=== PATIENT | female | born 1985 | race Caucasian/White ===

== ENCOUNTER 2018-04-01 08:15 | Emergency (ER) | payer OTHER ==
[2018-04-01 08:33] VITALS: BP 114/83; PULSE 94; O2SAT 98
--- NOTE | 2018-04-01 08:44 | ERPHSYRPT ---
- History of Present Illness Time Seen by Provider: 04/01/18 08:35 Source: patient Exam Limitations: no limitations Patient Subjective Stated Complaint: Neck pain/stiffness Triage Nursing Assessment: Patient ambulated into ER and transferred self to bed. Patient complains of neck pain/ stiffness since yesterday when waking up. Patient denies any injury to neck. Patient states she had a concussion last month and isn't sure if this has something to do with her neck pain. Patient states pain is a 9/10. Patient states she feels better when her hand is resting in her hands. No visible areas noted to neck. Physician History: 32 y/o white female presents with one day h/o neck pain when she awoke from a sleep yesterday morning. pt denies trauma. over a month ago pt was dx with a concussion after a head injury but the neck pain began yesterday. Timing/Duration: yesterday Severity: moderate Modifying Factors: Improves With: movement (worsens. ), rest (placing head into hands relieves pain) Associated Symptoms: denies symptoms, No nausea, No vomiting, No abdominal pain , No shortness of breath, No chest pain, No headaches, No loss of appetite Allergies/Adverse Reactions: aspirin Allergy (Verified 04/01/18 08:40) erythromycin base Allergy (Verified 04/01/18 08:40) ibuprofen Allergy (Verified 04/01/18 08:40) naproxen Allergy (Verified 04/01/18 08:40) Penicillins Allergy (Verified 04/01/18 08:40) promethazine [From Phenergan] Allergy (Verified 04/01/18 08:40) Sulfa (Sulfonamide Antibiotics) Allergy (Verified 04/01/18 08:40) Hx Tetanus, Diphtheria Vaccination/Date Given: Yes Hx Influenza Vaccination/Date Given: No Hx Pneumococcal Vaccination/Date Given: No Immunizations Up to Date: Yes - Review of Systems Constitutional: No Symptoms, No Fever, No Chills Eyes: No Symptoms, No Eye Pain Ears, Nose, & Throat: No Symptoms, No Ear Pain Respiratory: No Symptoms, No Cough, No Dyspnea, No Dyspnea on Exertion (SENA), No Stridor, No Wheezing Cardiac: No Symptoms, No Chest Pain, No Palpitations, No Syncope Abdominal/Gastrointestinal: No Symptoms, No Abdominal Pain, No Nausea, No Vomiting Genitourinary Symptoms: No Symptoms, No Dysuria, No Frequency, No Hematuria Musculoskeletal: Neck Pain Skin: No Symptoms, No Pruritis, No Rash Neurological: No Symptoms, No Dizziness, No Headache Psychological: No Symptoms, No Alcohol Abuse, No Drug Abuse, No Anxiety Endocrine: No Symptoms Hematologic/Lymphatic: No Symptoms Immunological/Allergic: No Symptoms All Other Systems: Reviewed and Negative - Past Medical History Pertinent Past Medical History: No Neurological History: No Pertinent History ENT History: No Pertinent History Cardiac History: No Pertinent History Respiratory History: No Pertinent History Endocrine Medical History: No Pertinent History Musculoskeletal History: No Pertinent History GI Medical History: No Pertinent History History: No Pertinent History Psycho-Social History: Bipolar, Depression Female Reproductive Disorders: No Pertinent History Other Medical History: manic bipolar depressive, Schizophrenia, borderline personality, phobias. - Past Surgical History Past Surgical History: Yes Neuro Surgical History: No Pertinent History Gastrointestinal: Cholecystectomy Genitourinary: No Pertinent History Musculoskeletal: No Pertinent History Female Surgical History: No Pertinent History Other Surgical History: Gallbladder, Tubal - Social History Smoking Status: Current every day smoker How long have you smoked: 17 years Exposure to second hand smoke: Yes Drug Use: marijuana Patient Lives Alone: No - Female History Hx Last Menstrual Period: 03/18/18 Hx Now: No - Nursing Vital Signs Nursing Vital Signs: Initial Vital Signs Temperature 97.7 F 04/01/18 08:22 Pulse Rate 94 H 04/01/18 08:22 Respiratory Rate 18 04/01/18 08:22 Blood Pressure 114/83 04/01/18 08:22 O2 Sat by Pulse Oximetry 98 04/01/18 08:22 Pain Scale Pain Intensity 9 - Physical Exam General Appearance: mild distress, alert, anxiety Eye Exam: PERRL/EOMI, eyes nml inspection Ears, Nose, Throat Exam: normal ENT inspection Neck Exam: normal inspection, supple, full range of motion, other (left paraspinsous muscle to left trapezius m tenderness to palpation), No midline tenderness Respiratory Exam: normal breath sounds, lungs clear, airway intact, No chest tenderness, No respiratory distress, No accessory muscle use, No wheezing, No stridor Cardiovascular Exam: regular rate/rhythm, normal heart sounds, normal peripheral pulses Gastrointestinal/Abdomen Exam: soft, normal bowel sounds, No tenderness Pelvic Exam: not done Rectal Exam: not done Back Exam: normal inspection, normal range of motion, No CVA tenderness, No vertebral tenderness Extremity Exam: normal inspection, normal range of motion, pelvis stable Neurologic Exam: alert, oriented x 3, cooperative, weather clerk II-XII nml as tested Skin Exam: normal color, warm, dry SpO2: 98 Oxygen Delivery: Room Air - Course Nursing assessment & vital signs reviewed: Yes - Progress Progress: pain not gone completely Counseled pt/family regarding: diagnosis, need for follow-up - Departure Time of Disposition: 08:58 Departure Disposition: Home Clinical Impression: Neck muscle strain, Muscle spasm Condition: Stable Critical Care Time: No Referrals: ASAEL BEJARANO PA [Primary Care Provider] - Additional Instructions: alternate ice and heat 3 times daily for 2 days. follow up with primary doctor today to arrange appointment. Prescriptions: Carisoprodol 350 mg [Soma 350 mg] 350 mg PO Q8H PRN PRN #10 tablet PRN Reason: Muscle Spasms Prednisone 10 mg [Deltasone 10 mg] 10 mg PO TID #12 tablet
[2018-04-01] MEDS ORDERED: Norco 10/325 MG Tablet PO ONE (08:49)
[2018-04-01] MEDS ORDERED: Cyclobenzaprine 10 MG PO ONE (08:49)
[2018-04-01] MEDS ORDERED: DELTASONE 20 MG PO ONE (08:50)
[2018-04-01] MEDS ORDERED: DELTASONE 20 MG ONE (08:55)
[2018-04-01] MEDS ORDERED: Cyclobenzaprine 10 MG ONE (08:55)
[2018-04-01] MEDS ORDERED: Norco 10/325 MG Tablet ONE (08:55)
== END 2018-04-01 09:14 | disposition home or self-care (01) ==
LOC: ED 08:15
DX: S16.1XXA Strain of muscle, fascia and tendon at neck level, initial encounter (principal); M62.830 Muscle spasm of back; M54.2 Cervicalgia
CPT/HCPCS: 99283; A9270-GY

== ENCOUNTER 2021-12-29 10:10 | Emergency (ER) | payer OTHER ==
[2021-12-29 10:30] VITALS: O2SAT 98
[2021-12-29] MEDS ORDERED: MORPHINE SULFATE 4 MG INJ IM ONE (10:30)
--- NOTE | 2021-12-29 10:33 | ERPHSYRPT ---
- History of Present Illness Time Seen by Provider: 12/29/21 10:16 Source: patient Exam Limitations: no limitations Patient Subjective Stated Complaint: pt here for left ear pain for a couple days, was dx with busted ear drum, she is here today for pain Triage Nursing Assessment: pt alert, resp easy, skin w/d/p,face mask in place, no drainage from ear, Physician History: 35 years old female presented in the ER with chief complaint of left earache. Patient was seen at [facility] ER with ruptured eardrum and is currently on Levaquin. She noticed some bleeding again today. No discharge. No fever or chills reported. Timing/Duration: abrupt onset, days (3) Severity: moderate ENT Location: ear (L) Prearrival Treatment: prescription meds Associated Symptoms: ear pain (L), facial pain/swelling, No fever Allergies/Adverse Reactions: aspirin Allergy (Verified 12/29/21 10:31) cyclobenzaprine [From Flexeril] Allergy (Verified 12/29/21 10:31) erythromycin base Allergy (Verified 12/29/21 10:31) ibuprofen Allergy (Verified 12/29/21 10:31) naproxen Allergy (Verified 12/29/21 10:31) Penicillins Allergy (Verified 12/29/21 10:31) promethazine [From Phenergan] Allergy (Verified 12/29/21 10:31) Sulfa (Sulfonamide Antibiotics) Allergy (Verified 12/29/21 10:31) tramadol Allergy (Verified 12/29/21 10:31) Hx Tetanus, Diphtheria Vaccination/Date Given: Yes Hx Influenza Vaccination/Date Given: No Hx Pneumococcal Vaccination/Date Given: No Immunizations Up to Date: Yes Travel Risk - International Travel Have you traveled outside of the country in past 3 weeks: No - Coronavirus Screening Are you exhibiting any of the following symptoms?: No Close contact with a COVID-19 positive Pt in past 14-21 Days: No - Vaccine Status Have you recieved a Covid-19 vaccination: No - Review of Systems Constitutional: No Symptoms Eyes: No Symptoms Ears, Nose, & Throat: Ear Pain Respiratory: No Symptoms Cardiac: No Symptoms Abdominal/Gastrointestinal: No Symptoms Musculoskeletal: No Symptoms Neurological: No Symptoms Endocrine: No Symptoms Hematologic/Lymphatic: No Symptoms - Past Medical History Pertinent Past Medical History: No Neurological History: No Pertinent History ENT History: No Pertinent History Cardiac History: No Pertinent History Respiratory History: No Pertinent History Endocrine Medical History: No Pertinent History Musculoskeletal History: No Pertinent History GI Medical History: No Pertinent History History: No Pertinent History Psycho-Social History: Bipolar, Depression Female Reproductive Disorders: No Pertinent History Other Medical History: manic bipolar depressive, Schizophrenia, borderline personality, phobias. - Past Surgical History Past Surgical History: Yes Neuro Surgical History: No Pertinent History Gastrointestinal: Cholecystectomy Genitourinary: No Pertinent History Musculoskeletal: No Pertinent History Female Surgical History: No Pertinent History Other Surgical History: Gallbladder, Tubal - Social History Smoking Status: Current every day smoker How long have you smoked: 17 years Exposure to second hand smoke: Yes Drug Use: marijuana Patient Lives Alone: No - Female History Hx Last Menstrual Period: 2-3 weeks ago Hx Now: No - Nursing Vital Signs Nursing Vital Signs: Initial Vital Signs Temperature 97.4 F 12/29/21 10:23 Pulse Rate 71 12/29/21 10:23 Respiratory Rate 18 12/29/21 10:23 Blood Pressure 126/67 12/29/21 10:23 O2 Sat by Pulse Oximetry 98 12/29/21 10:23 Pain Scale Pain Intensity 5 - Physical Exam General Appearance: no apparent distress, alert, anxiety Eye Exam: bilateral eye: normal inspection, PERRL, EOMI Ear Exam: right ear: canal normal, TM normal, left ear: bleeding (Dried blood in the canal), TM perforation, bilateral ear: auricle normal Nasal Exam: normal inspection Throat Exam: normal, pharynx normal, No dental tenderness Neck Exam: normal inspection, non-tender, supple, full range of motion Cardiovascular/Respiratory Exam: normal breath sounds, regular rate/rhythm Neurologic Exam: alert, oriented x 3, cooperative, social worker palliative care II-XII nml as tested Skin Exam: normal color SpO2 Interpretation: normal SpO2: 98 O2 Delivery: Room Air Ordered Tests: Medication Summary Discontinued Medications Generic Name Dose Route Start Last Admin Trade Name Freq PRN Reason Stop Dose Admin Hydrocodone Bitart/Acetaminophen 2 tab 12/29/21 11:19 12/29/21 11:25 Hydrocodone/Apap 5/325 Mg Tablet PO 12/29/21 11:20 2 tab SENT HOME W/ PATIENT ONE Administration Hydrocodone Bitart/Acetaminophen Confirm 12/29/21 11:25 Hydrocodone/Apap 5/325 Mg Tablet Administered 12/29/21 11:26 Dose 2 tab .ROUTE .STK-MED ONE Morphine Sulfate 4 mg 12/29/21 10:30 12/29/21 10:36 Morphine Sulfate 4 Mg/Ml Injection IM 12/29/21 10:31 4 mg STAT ONE Administration Morphine Sulfate Confirm 12/29/21 10:34 Morphine Sulfate 4 Mg/Ml Injection Administered 12/29/21 10:35 Dose 4 mg .ROUTE .STK-MED ONE - Progress Progress: pain not gone completely, re-examined Progress Note: 12/29/21 19:59 She is on Levaquin which we will continue. She is given topical antibiotics drops and recommended continue with pain medications. Outpatient follow-up with the ENT recommended. Counseled pt/family regarding: diagnosis, need for follow-up - Departure Departure Disposition: Home Clinical Impression: Otitis media Qualifiers: Otitis media type: suppurative Chronicity: acute Laterality: left Recurrence: not specified as recurrent Spontaneous tympanic membrane rupture: with spontaneous rupture Qualified Code(s): H66.012 - Acute suppurative otitis media with spontaneous rupture of ear drum, left ear Condition: Stable Critical Care Time: No Referrals: ASAEL BEJARANO PA [Primary Care Provider] - Follow up/PCP as directed (Tomorrow for reevaluation) Instructions: Ear Infections (Otitis Media) in Children (DC) Additional Instructions: Take pain medications as needed. Continue with oral antibiotics. Use eardrops twice a day up with ENT for reevaluation. Prescriptions: Ofloxacin Otic 5 ml [Floxin Otic 5 ML] 5 drop OT BID 7 Days #5 ml
[2021-12-29] MEDS ORDERED: MORPHINE SULFATE 4 MG INJ ONE (10:34)
[2021-12-29 11:12] VITALS: BP 101/60; PULSE 63
[2021-12-29] MEDS ORDERED: NORCO 5/325 MG PO ONE (11:19)
[2021-12-29] MEDS ORDERED: NORCO 5/325 MG ONE (11:25)
== END 2021-12-29 11:31 | disposition home or self-care (01) ==
LOC: ED 10:10
DX: H66.012 Acute suppurative otitis media with spontaneous rupture of ear drum, left ear (principal); H92.02 Otalgia, left ear; Z72.0 Tobacco use; Z28.310 Unvaccinated for COVID-19
CPT/HCPCS: 96372; 99283; J2270; A9270-GY

== ENCOUNTER 2022-05-13 18:32 | Emergency (ER) | payer OTHER ==
[2022-05-13 18:44] VITALS: BP 132/80; O2SAT 98
[2022-05-13] MEDS ORDERED: Vibramycin 100 MG PO ONE (18:52)
[2022-05-13] MEDS ORDERED: MORPHINE SULFATE 4 MG INJ IM ONE (18:56)
[2022-05-13] MEDS ORDERED: MORPHINE SULFATE 4 MG INJ ONE (18:58)
[2022-05-13] MEDS ORDERED: Vibramycin 100 MG ONE (18:59)
--- NOTE | 2022-05-13 19:00 | ERPHSYRPT ---
- History of Present Illness Time Seen by Provider: 05/13/22 18:45 Source: patient Patient Subjective Stated Complaint: Pt states "I tripped over the dog and hurt my tailbone, I have a lump under my left arm and it hurts, I also was lifting a box and felt something in my back pop and it hurts too." Triage Nursing Assessment: Pt presented alert and oriented X 3, skin wpd. pt ambulates with an upright steady gait, able to speak in clear full sentences pt resting comfortably on the bed. Physician History: Patient 36-year-old female presents to our ED with multiple complaints. Patient states that she tripped on a dog bone fell on her bottom. Patient has a coccyx soreness. However patient states she does not want an x-ray at this time. Patient also states she was lifting and injured her back. Patient has tenderness to palpation at the right lower thoracic upper lumbar paraspinal musculature. Patient also has a lymph node at her left axilla. No clear signs of infection or cellulitis. Patient does shave her axilla closely however no obvious cellulitis at this time. Unclear whether this lymph node is reactive versus malignant. Symptoms are mild to moderate intensity. Patient requesting pain medication. Patient states morphine is typically helpful for her pain. Patient voices no other complaints concerns at this time. She has not seen her primary care doctor. Patient voices no other complaints or concerns this time. Timing/Duration: yesterday Severity: moderate Modifying Factors: Improves With: nothing Associated Symptoms: denies symptoms Allergies/Adverse Reactions: aspirin Allergy (Verified 12/29/21 10:31) cyclobenzaprine [From Flexeril] Allergy (Verified 12/29/21 10:31) erythromycin base Allergy (Verified 12/29/21 10:31) ibuprofen Allergy (Verified 12/29/21 10:31) naproxen Allergy (Verified 12/29/21 10:31) Penicillins Allergy (Verified 12/29/21 10:31) promethazine [From Phenergan] Allergy (Verified 12/29/21 10:31) Sulfa (Sulfonamide Antibiotics) Allergy (Verified 12/29/21 10:31) tramadol Allergy (Verified 12/29/21 10:31) Home Medications: Brexpiprazole [Rexulti] 1 mg PO DAILY 05/13/22 [History] Hydroxyzine HCl 25 mg [Atarax 25 mg] 25 mg PO DAILY 05/13/22 [History] Vortioxetine Hydrobromide [Trintellix] 20 mg PO DAILY 05/13/22 [History] Hx Tetanus, Diphtheria Vaccination/Date Given: Yes Hx Influenza Vaccination/Date Given: No Hx Pneumococcal Vaccination/Date Given: No Immunizations Up to Date: Yes Travel Risk - International Travel Have you traveled outside of the country in past 3 weeks: No - Coronavirus Screening Are you exhibiting any of the following symptoms?: No Close contact with a COVID-19 positive Pt in past 14-21 Days: No - Vaccine Status Have you recieved a Covid-19 vaccination: No - Review of Systems Constitutional: No Symptoms, No Fever, No Chills Eyes: No Symptoms Ears, Nose, & Throat: No Symptoms Respiratory: No Symptoms, No Cough, No Dyspnea Cardiac: No Symptoms, No Chest Pain, No Edema, No Syncope Abdominal/Gastrointestinal: No Symptoms, No Abdominal Pain, No Nausea, No Vomiting, No Diarrhea Genitourinary Symptoms: No Symptoms, No Dysuria Musculoskeletal: No Symptoms, No Back Pain, No Neck Pain Skin: No Symptoms, No Rash Neurological: No Symptoms, No Dizziness, No Focal Weakness, No Sensory Changes Psychological: No Symptoms Endocrine: No Symptoms Hematologic/Lymphatic: No Symptoms Immunological/Allergic: No Symptoms All Other Systems: Reviewed and Negative - Past Medical History Pertinent Past Medical History: No Neurological History: No Pertinent History ENT History: No Pertinent History Cardiac History: No Pertinent History Respiratory History: No Pertinent History Endocrine Medical History: No Pertinent History Musculoskeletal History: No Pertinent History GI Medical History: No Pertinent History History: No Pertinent History Psycho-Social History: Bipolar, Depression Female Reproductive Disorders: No Pertinent History Other Medical History: manic bipolar depressive, Schizophrenia, borderline personality, phobias. - Past Surgical History Past Surgical History: Yes Neuro Surgical History: No Pertinent History Gastrointestinal: Cholecystectomy Genitourinary: No Pertinent History Musculoskeletal: No Pertinent History Female Surgical History: No Pertinent History Other Surgical History: Gallbladder, Tubal - Social History Smoking Status: Current every day smoker How long have you smoked: 17 years Exposure to second hand smoke: Yes Drug Use: marijuana Patient Lives Alone: No - Female History Hx Last Menstrual Period: 04/28/2022 Hx Now: No (tubal) - Nursing Vital Signs Nursing Vital Signs: Initial Vital Signs Temperature 97.8 F 05/13/22 18:38 Pulse Rate 72 05/13/22 18:38 Respiratory Rate 20 05/13/22 18:38 Blood Pressure 132/80 05/13/22 18:38 O2 Sat by Pulse Oximetry 98 05/13/22 18:38 Pain Scale Pain Intensity 8 - Physical Exam General Appearance: no apparent distress, alert Eye Exam: PERRL/EOMI, eyes nml inspection Ears, Nose, Throat Exam: normal ENT inspection, TMs normal, pharynx normal, moist mucous membranes Neck Exam: normal inspection, non-tender, supple, full range of motion Respiratory Exam: normal breath sounds, lungs clear, airway intact, No respiratory distress Cardiovascular Exam: regular rate/rhythm, normal heart sounds, normal peripheral pulses Gastrointestinal/Abdomen Exam: soft, normal bowel sounds, No tenderness, No mass Back Exam: normal inspection, normal range of motion, other (Tender to palpation right lower thoracic upper lumbar paraspinal musculature. No midline tenderness.), No CVA tenderness, No vertebral tenderness Extremity Exam: normal inspection, normal range of motion, pelvis stable, other (Left axillary lymph node.) Neurologic Exam: alert, oriented x 3, cooperative, normal mood/affect, nml cerebellar function, nml station & gait, sensation nml, No motor deficits Skin Exam: normal color, warm, dry, No rash Lymphatic Exam: No adenopathy SpO2 Interpretation: normal SpO2: 98 O2 Delivery: Room Air - Course Nursing assessment & vital signs reviewed: Yes Ordered Tests: Medication Summary Discontinued Medications Generic Name Dose Route Start Last Admin Trade Name Lizbeth PRN Reason Stop Dose Admin Doxycycline Hyclate 100 mg 05/13/22 18:52 Doxycycline Hyclate 100 Mg Tablet PO 05/13/22 18:53 STAT ONE - Progress Progress: improved Progress Note: Patient reassessed. She feels well. Patient states that morphine helps her pain. Patient received 4 mg morphine IM. Patient received doxycycline for presumed reactive lymphadenopathy left axilla. A prescription for the same was forwarded to patient's pharmacy. Patient fell. She is got some soreness at her's coccyx. However she does not want a x-ray at this time. Patient advised that the pain does not improve in a week's time she will need imaging. Patient understands. Patient agrees to follow-up with her primary care doctor within 40 hours for evaluation. Portions of this note were created with voice recognition technology. There may be grammatical, spelling, punctuation or sound alike errors 05/13/22 18:58 Counseled pt/family regarding: diagnosis, need for follow-up - Departure Departure Disposition: Home Clinical Impression: LAD (lymphadenopathy), axillary, thoracic paraspinal muscle strain Condition: Stable Critical Care Time: No Referrals: ASAEL BEJARANO PA [Primary Care Provider] - Follow up/PCP as directed Additional Instructions: You have a lymph node observed in your left armpit. This lymph node may be reactive or due to an infection. However it may also be due to a cancer in the breast. He will require a mammogram for further evaluation of this lymph node. Discharge/Care Plan SAMANTHA ELMORE was seen on 05/13/22 in the Emergency Room. The patient was counseled regarding Diagnosis,Lab results, Imaging studies, need for follow up and when to return to the Emergency Room. Prescriptions given: Discharge Note I have spoken with the patient and/or caregivers. I have explained the patient's condition, diagnosis and treatment plan based on the information available to me at this time. I have answered the patient's and/or caregiver's questions and addressed any concerns. The patient and/or caregivers have as good understanding of the patient's diagnosis, condition and treatment plan as can be expected at this point. The vital signs have been stable. The patient's condition is stable and appropriate for discharge from the emergency department. The patient will pursue further outpatient evaluation with the primary care physician or other designated or consulting physician as outlined in the discharge instructions. The patient and/or caregivers are agreeable to this plan of care and follow-up instructions have been explained in detail. The patient and/or caregivers have received these instruction. The patient/and or caregivers are aware that any significant change in condition or worsening of symptoms should prompt an immediate return to this or the closest emergency department or call 911. Prescriptions: Doxycycline Hyclate 100 mg [Vibramycin 100 MG] 100 mg PO BID 7 Days #14 tab
[2022-05-13 19:22] VITALS: PULSE 68
== END 2022-05-13 19:20 | disposition home or self-care (01) ==
LOC: ED 18:32
DX: R59.0 Localized enlarged lymph nodes (principal); S29.012A Strain of muscle and tendon of back wall of thorax, initial encounter; X50.0XXA Overexertion from strenuous movement or load, initial encounter; S39.92XA Unspecified injury of lower back, initial encounter; W01.0XXA Fall on same level from slipping, tripping and stumbling without subsequent striking against object, initial encounter; Z72.0 Tobacco use; Z79.899 Other long term (current) drug therapy; Z28.310 Unvaccinated for COVID-19
CPT/HCPCS: 96372; 99283; J2270; A9270-GY

== ENCOUNTER 2022-05-16 16:10 | Emergency (ER) | payer OTHER ==
[2022-05-16 16:20] VITALS: BP 144/85; PULSE 86; O2SAT 98
--- NOTE | 2022-05-16 16:58 | ERPHSYRPT ---
- History of Present Illness Time Seen by Provider: 05/16/22 16:19 Source: patient Exam Limitations: no limitations Patient Subjective Stated Complaint: PT states "This lump under my arm is getting bigger and it brown so bad." Triage Nursing Assessment: Pt presented alert and oriented X3, skin wpd. pt ambulates with an upright steady gait, able to speak in clear full sentences pt in no apaprent respiratory distress. Pt has a small abscess/lump under her right arm in axilla Physician History: 36 years old female presented in the ER with chief complaint of painful lump in left axilla which is there for almost a week. Patient was recently evaluated in the ER 3 days ago, was given IM morphine which did help with her symptoms and was started on doxycycline for possible infective lymphadenopathy. Patient reports she has been taking medication but because of her work she has to move her arm and it does hurt and is requesting a shot of morphine or Dilaudid specifically. Patient also states that she needs hydrocodone's to go home. She has been taking Tylenol which according to her does not relieve her pain. She denies any redness around swelling, fever or chills. Timing/Duration: week(s) (1), gradual onset, worse Quality: painful Severity: moderate, severe Location: axillary (L) Possible Causes: no cause identified Associated Symptoms: swelling/mass/lumps Allergies/Adverse Reactions: aspirin Allergy (Verified 12/29/21 10:31) cyclobenzaprine [From Flexeril] Allergy (Verified 12/29/21 10:31) erythromycin base Allergy (Verified 12/29/21 10:31) ibuprofen Allergy (Verified 12/29/21 10:31) naproxen Allergy (Verified 12/29/21 10:31) Penicillins Allergy (Verified 12/29/21 10:31) promethazine [From Phenergan] Allergy (Verified 12/29/21 10:31) Sulfa (Sulfonamide Antibiotics) Allergy (Verified 12/29/21 10:31) tramadol Allergy (Verified 12/29/21 10:31) Home Medications: Brexpiprazole [Rexulti] 1 mg PO DAILY 05/13/22 [History] Hydroxyzine HCl 25 mg [Atarax 25 mg] 25 mg PO DAILY 05/13/22 [History] Vortioxetine Hydrobromide [Trintellix] 20 mg PO DAILY 05/13/22 [History] Hx Tetanus, Diphtheria Vaccination/Date Given: Yes Hx Influenza Vaccination/Date Given: No Hx Pneumococcal Vaccination/Date Given: No Immunizations Up to Date: Yes Travel Risk - International Travel Have you traveled outside of the country in past 3 weeks: No - Coronavirus Screening Are you exhibiting any of the following symptoms?: No Close contact with a COVID-19 positive Pt in past 14-21 Days: No - Vaccine Status Have you recieved a Covid-19 vaccination: No - Review of Systems Constitutional: No Symptoms Ears, Nose, & Throat: No Symptoms Respiratory: No Symptoms Cardiac: No Symptoms Genitourinary Symptoms: No Symptoms Musculoskeletal: No Symptoms Skin: No Symptoms Neurological: No Symptoms Hematologic/Lymphatic: Adenopathy - Past Medical History Pertinent Past Medical History: No Neurological History: No Pertinent History ENT History: No Pertinent History Cardiac History: No Pertinent History Respiratory History: No Pertinent History Endocrine Medical History: No Pertinent History Musculoskeletal History: No Pertinent History GI Medical History: No Pertinent History History: No Pertinent History Psycho-Social History: Bipolar, Depression Female Reproductive Disorders: No Pertinent History Other Medical History: manic bipolar depressive, Schizophrenia, borderline personality, phobias. - Past Surgical History Past Surgical History: Yes Neuro Surgical History: No Pertinent History Gastrointestinal: Cholecystectomy Genitourinary: No Pertinent History Musculoskeletal: No Pertinent History Female Surgical History: No Pertinent History Other Surgical History: Gallbladder, Tubal - Social History Smoking Status: Current every day smoker How long have you smoked: 17 years Exposure to second hand smoke: Yes Drug Use: marijuana Patient Lives Alone: No - Female History Hx Last Menstrual Period: 04/23/2022 Hx Now: No (unknown) - Nursing Vital Signs Nursing Vital Signs: Initial Vital Signs Temperature 98.1 F 05/16/22 16:16 Pulse Rate 86 05/16/22 16:16 Respiratory Rate 20 05/16/22 16:16 Blood Pressure 144/85 05/16/22 16:16 O2 Sat by Pulse Oximetry 98 05/16/22 16:16 Pain Scale Pain Intensity 8 - Physical Exam General Appearance: no apparent distress, alert Eye Exam: PERRL/EOMI Ears, Nose, Throat Exam: normal ENT inspection Neck Exam: normal inspection, full range of motion Respiratory Exam: normal breath sounds, lungs clear Cardiovascular Exam: regular rate/rhythm, normal heart sounds Extremity Exam: normal inspection, normal range of motion, other (Almost 1.2 cm swollen lymph node left axilla, no induration/redness or signs of cellulitis. Tender to touch.) Neurologic Exam: alert, oriented x 3, cooperative Skin Exam: normal color SpO2 Interpretation: normal SpO2: 98 O2 Delivery: Room Air - Progress Progress: unchanged Progress Note: 05/16/22 16:56 I do not see any signs of cellulitis, she is taking doxycycline which she is recommended to continue. She is advised to take Tylenol. She is specifically requesting shots of narcotic pain medication which I do not think patient needs it and she is offered Toradol, got upset and did not want it. Later on she left ER without informing anyone. She is advised to follow-up with her primary care. Counseled pt/family regarding: diagnosis - Departure Departure Disposition: AMA (Eloped) Clinical Impression: LAD (lymphadenopathy), axillary Condition: Stable Critical Care Time: No Referrals: ASAEL BEJARANO PA [Primary Care Provider] - Follow up/PCP as directed
== END 2022-05-16 16:46 | disposition left against medical advice (07) ==
LOC: ED 16:10
DX: R59.0 Localized enlarged lymph nodes (principal); Z72.0 Tobacco use; Z79.899 Other long term (current) drug therapy; Z28.310 Unvaccinated for COVID-19
CPT/HCPCS: 99281

== ENCOUNTER 2023-04-07 14:43 | Emergency (ER) | payer OTHER ==
[2023-04-07 15:23] VITALS: BP 126/92; TEMP 100.3
[2023-04-07 16:03] VITALS: PULSE 59; RESP 16; O2SAT 99
--- NOTE | 2023-04-07 16:33 | XRAY ---
Indication: Pain. Comparison: None 3 view right ankle demonstrates tiny well-circumscribed heterotopic ossifications tip medial and lateral malleolus either degenerative versus sequela old injury. No other bony, articular, or soft tissue abnormalities.
--- NOTE | 2023-04-07 16:59 | ERPHSYRPT ---
- History of Present Illness Time Seen by Provider: 04/07/23 16:58 Source: patient Exam Limitations: no limitations Patient Subjective Stated Complaint: "I twisted wrong a couple days ago when I opened a fridge and my right ankle popped and then popped again. I've broke it before and now the pain is so bad I can barely walk". Triage Nursing Assessment: Pt presents to ER with complaints of right ankle injury that occurred 2 days ago. States twisted wrong and heard ankle "pop" a couple of times. Pt does have limited ROM, unsteady gait. No obvious deformity noted. Area is slightly swollen and tender upon exam. Pt is able to wiggle toes. Pt is alert and oriented x 3. Skin is pink, warm, and dry. Complains of numbness and tingling to ankle/foot. States pain is sharp and intermittent. Currently rates pain 8/10 scale. Physician History: Patient is a 37-year-old female presents to our ED for evaluation of right ankle pain. Patient states she twisted her ankle 2 days ago while she was opening up a refrigerator. Patient heard a pop. She did not seek medical attention immediately. Patient states her ankle is not hurting her. Pain described as an ache that is localized. No radiation. Pain worse with ambulation. Pain improved with rest. No other complaints at this time. No other injuries. Portions of this note were created with voice recognition technology. There may be grammatical, spelling, punctuation or sound alike errors Method of Injury: twisted Occurred: days ago (2 days ago) Quality: constant Severity of Pain-Max: moderate Severity of Pain-Current: mild Lower Extremities Pain: ankle: right Modifying Factors: Improves With: movement (Weightbearing) Associated Symptoms: none Allergies/Adverse Reactions: aspirin Allergy (Verified 04/07/23 15:23) cyclobenzaprine [From Flexeril] Allergy (Verified 04/07/23 15:23) erythromycin base Allergy (Verified 04/07/23 15:23) ibuprofen Allergy (Verified 04/07/23 15:23) naproxen Allergy (Verified 04/07/23 15:23) Penicillins Allergy (Verified 04/07/23 15:23) promethazine [From Phenergan] Allergy (Verified 04/07/23 15:23) Sulfa (Sulfonamide Antibiotics) Allergy (Verified 04/07/23 15:23) tramadol Allergy (Verified 04/07/23 15:23) Hx Tetanus, Diphtheria Vaccination/Date Given: Yes Hx Influenza Vaccination/Date Given: No Hx Pneumococcal Vaccination/Date Given: No Travel Risk - International Travel Have you traveled outside of the country in past 3 weeks: No - Coronavirus Screening Are you exhibiting any of the following symptoms?: No Close contact with a COVID-19 positive Pt in past 14-21 Days: No - Vaccine Status Have you recieved a Covid-19 vaccination: No - Review of Systems Constitutional: No Symptoms, No Fever, No Chills Eyes: No Symptoms Ears, Nose, & Throat: No Symptoms Respiratory: No Symptoms, No Cough, No Dyspnea Cardiac: No Symptoms, No Chest Pain, No Edema, No Syncope Abdominal/Gastrointestinal: No Symptoms, No Abdominal Pain, No Nausea, No Vomiting, No Diarrhea Genitourinary Symptoms: No Symptoms, No Dysuria Musculoskeletal: No Symptoms, No Back Pain, No Neck Pain Skin: No Symptoms, No Rash Neurological: No Symptoms, No Dizziness, No Focal Weakness, No Sensory Changes Psychological: No Symptoms Endocrine: No Symptoms Hematologic/Lymphatic: No Symptoms Immunological/Allergic: No Symptoms All Other Systems: Reviewed and Negative - Past Medical History Pertinent Past Medical History: Yes Neurological History: No Pertinent History ENT History: No Pertinent History Cardiac History: No Pertinent History Respiratory History: No Pertinent History Endocrine Medical History: No Pertinent History Musculoskeletal History: No Pertinent History GI Medical History: No Pertinent History History: No Pertinent History Psycho-Social History: Bipolar, Depression Female Reproductive Disorders: No Pertinent History Other Medical History: manic bipolar depressive, Schizophrenia, borderline personality, phobias. - Past Surgical History Past Surgical History: Yes Neuro Surgical History: No Pertinent History Cardiac: No Pertinent History Respiratory: No Pertinent History Gastrointestinal: Cholecystectomy Genitourinary: No Pertinent History Musculoskeletal: No Pertinent History Female Surgical History: No Pertinent History Other Surgical History: Gallbladder, Tubal, right ankle fx total of 8 times in the past (never had sx?) - Social History Smoking Status: Current every day smoker How long have you smoked: 17 years Exposure to second hand smoke: Yes Drug Use: marijuana Patient Lives Alone: No - Female History Hx Last Menstrual Period: 03/31/23 Hx Now: No - Nursing Vital Signs Nursing Vital Signs: Initial Vital Signs Temperature 100.3 F 04/07/23 15:13 Pulse Rate 77 04/07/23 15:13 Respiratory Rate 20 04/07/23 15:13 Blood Pressure 126/92 04/07/23 15:13 O2 Sat by Pulse Oximetry 97 04/07/23 15:13 Pain Scale Pain Intensity 8 - Physical Exam General Appearance: no apparent distress, alert Eyes, Ears, Nose, Throat Exam: moist mucous membranes Neck Exam: non-tender, supple Cardiovascular/Respiratory Exam: chest non-tender, normal breath sounds, regular rate/rhythm, no respiratory distress Gastrointestinal/Abdominal Exam: non-tender, guarding Back Exam: normal inspection, No vertebral tenderness Hips Exam: bilateral: non-tender, normal inspection, normal range of motion, no evidence of injury Legs Exam: bilateral leg: non-tender, normal inspection, normal range of motion, no evidence of injury Knees Exam: bilateral knee: non-tender, normal inspection, normal range of motion, no evidence of injury Ankle Exam: right ankle: pain, left ankle: non-tender, normal inspection, normal range of motion, no evidence of injury Foot Exam: bilateral foot: non-tender, normal inspection, normal range of motion, no evidence of injury Neuro/Tendon Exam: normal sensation, normal motor functions Mental Status Exam: alert, oriented x 3, cooperative Skin Exam: normal color, warm, dry SpO2 Interpretation: normal SpO2: 99 O2 Delivery: Room Air - Course Nursing assessment & vital signs reviewed: Yes - Radiology Exams Ankle X-ray Interpretation: Teleradiologist Report (No fracture dislocation. There is some heterotopic ossification near the malleolus. No acute findings) Ordered Tests: Active Orders 24 hr Category Date Time Status ANKLE (3 VIEWS) Stat Exams 04/07/23 15:40 Completed - Progress Progress: improved Progress Note: 37-year-old female presents to our ED with right ankle pain x2 days. Patient has been ambulating on her injured ankle. Physical exam shows pronated feet. Otherwise no acute findings. Pain is surrounding the anterolateral aspect of the right ankle. Minimal swelling. The involved extremity is neurovascular tact distally. Compartments are soft. Cap refill less than 2 seconds. Patient has multiple allergies. Patient received IM morphine for pain control, 04/07/23 17:13 Patient declined crutches that she has crutches at home. Complexity problem addressed is low acute uncomplicated Complexity data reviewed and analyzed is moderate. X-ray ordered and reviewed. Report analyzed. Clinical correlation made between the findings. No significant abnormalities observed on the x-ray. Patient pain possibly coming from ligament or tendon. Patient received morphine IM for pain control as patient has not allergies to NSAIDs. Patient declined crutches. A prescription for Josephine forwarded to patient's pharmacy. Risk of complication and a risk morbidity/mortality of patient management is high. Patient received IM morphine for pain control. A prescription for Josephine forwarded to patient's pharmacy. Patient discharged home. Vital stable. Time spent to discharge patient is approximately 15 minutes. Plan of care established for shared decision making. No social determinants of health present to impede follow-up. Portions of this note were created with voice recognition technology. There may be grammatical, spelling, punctuation or sound alike errors 04/07/23 17:18 Counseled pt/family regarding: lab results, diagnosis, need for follow-up, rad results - Departure Departure Disposition: Home Clinical Impression: Ankle sprain, Pronated foot Condition: Stable Critical Care Time: No Referrals: ASAEL BEJARANO PA [Primary Care Provider] - Follow up/PCP as directed Instructions: Ankle sprain Additional Instructions: Discharge/Care Plan SAMANTHA ELMORE was seen on 04/07/23 in the Emergency Room. The patient was counseled regarding Diagnosis,Lab results, Imaging studies, need for follow up and when to return to the Emergency Room. Prescriptions given: Discharge Note I have spoken with the patient and/or caregivers. I have explained the patient's condition, diagnosis and treatment plan based on the information available to me at this time. I have answered the patient's and/or caregiver's questions and addressed any concerns. The patient and/or caregivers have as good understanding of the patient's diagnosis, condition and treatment plan as can be expected at this point. The vital signs have been stable. The patient's condition is stable and appropriate for discharge from the emergency department. The patient will pursue further outpatient evaluation with the primary care physician or other designated or consulting physician as outlined in the discharge instructions. The patient and/or caregivers are agreeable to this plan of care and follow-up instructions have been explained in detail. The patient and/or caregivers have received these instruction. The patient/and or caregivers are aware that any significant change in condition or worsening of symptoms should prompt an immediate return to this or the closest emergency department or call 911. Prescriptions: Hydrocodone/Acetaminophen [Hydrocodone-Acetamin 7.5-325] 1 each PO Q6-8HPRN PRN 3 Days #12 tablet MDD 4 PRN Reason: Pain Outpatient Orders: Ortho Referral Time Frame: 1 Day, Facility: [facility], Location: [facility]
[2023-04-07] MEDS ORDERED: MORPHINE SULFATE 4 MG INJ IV ONE (17:12)
[2023-04-07] MEDS ORDERED: MORPHINE SULFATE 4 MG INJ ONE (17:15)
== END 2023-04-07 17:43 | disposition home or self-care (01) ==
LOC: ED 14:43
DX: S93.401A Sprain of unspecified ligament of right ankle, initial encounter (principal); X50.0XXA Overexertion from strenuous movement or load, initial encounter; M21.6X2 Other acquired deformities of left foot; M21.6X1 Other acquired deformities of right foot; Z79.891 Long term (current) use of opiate analgesic; Z28.310 Unvaccinated for COVID-19; Z72.0 Tobacco use
CPT/HCPCS: 73610; 96374; 99283; J2270

== ENCOUNTER 2023-06-15 21:39 | Emergency (ER) | payer OTHER ==
[2023-06-15 21:43] VITALS: TEMP 97.9
[2023-06-15] MEDS ORDERED: Zofran 4 MG/2 ML VIAL IV STA (21:57)
[2023-06-15] MEDS ORDERED: Sodium Chloride 0.9% 1000 ML 1,000 ML IV STA (21:57)
[2023-06-15 22:02] VITALS: O2SAT 99
[2023-06-15] MEDS ORDERED: solu-MEDROL 125 MG, Sterile H2O 10 ml 2 ML IV ONE ×2 (22:03)
[2023-06-15] MEDS ORDERED: HYDROCODONE-ACETAMIN 2.5-108/5 ML SOLUTION PO STA ×2 (22:03→23:31)
[2023-06-15 22:04] LABS: Absolute Neutrophil Ct (ANC) 8.07 x10^3/uL (1.4-6.9); BASOPHIL % 0.5 % (0.0-0.4); Basophil (Absolute #) 0.05 x10^3/uL (0-0.4); Eosinophil % 0.4 % (0.00-5.0); Eosinophil (Absolute #) 0.04 x10^3/uL (0-0.5); Hematocrit 44.5 % (35-47); Hemoglobin 14.9 g/dL (12.0-16.0); IMMATURE GRAN # 0.04 x10^3u/L (0.00-0.03); IMMATURE GRAN % 0.4 % (0.00-0.4); Lymphocyte (Absolute #) 2.11 x10^3/uL (1.0-4.6); Lymphocytes % 19.5 % (24.0-44.0); Mean Cell Volume 88.3 fL (78-100); Mean Corpuscular Hemoglobin 29.6 pg (26-32); Mean Corpuscular Hgb Concent. 33.5 g/dL (32-36); Mean Platelet Volume 9.8 fL (7.5-11.0); Monocyte (Absolute #) 0.52 x10^3/uL (0.0-1.3); Monocytes % 4.8 % (0.0-12.0); Neutrophil % 74.4 % (36.0-66.0); Platelet Count 368 x10^3/uL (150-450); Red Blood Count 5.04 x10^6/uL (4.1-5.4); Red Cell Distribution Width 12.6 % (11.5-14.0); White Blood Count 10.8 x10^3/uL (4.0-10.5)
--- NOTE | 2023-06-15 22:09 | ERPHSYRPT ---
- History of Present Illness Time Seen by Provider: 06/15/23 21:55 Source: patient, family Exam Limitations: no limitations Patient Subjective Stated Complaint: shortness of breath, vomiting, diarrhea, cough, headaches, body aches, fatigue Triage Nursing Assessment: pt ambulated into ER, alert and oriented x4, cooperative. Pt c/o shortness of breath which started 3 days ago but significantly got worse today. Pt's son was positive for covid 1.5 weeks ago but pt was negative at that time; however, pt just assumed she had it with her symptoms. Pt is short of breath but O2 sats are 99-100% on rm air, pt c/o nausea and vomiting and diarrhea, headache, body aches and fatigue. Lungs clear and and post throughout but slightly diminished. Pt has a prod cough with scant amt of thick yellowish, dean sputum. Pt is afebrile. Physician History: This is a 37-year-old white female patient who has a 3-day history of worsening productive cough with yellowish-dean sputum, body aches, fatigue, sinus pressure, vomiting and diarrhea symptoms. Today was worse than 3 days ago. Patient's room air oxygenation saturation levels 99% on arrival to the emergency department. Her vital signs are stable. Patient has shortness of breath with coughing. She denies chest pain. Patient's son tested positive for COVID 1-1/2 weeks ago. She had a test performed at that time and it was negative. Patient states that her work told her to take a week off of work and she is supposed to return tomorrow. However her symptoms have been worsening. She denies abdominal pain. Patient states that she can take codeine. She is not allergic to codeine. She states she is also not allergic to steroids. Timing/Duration: day(s) (3) Cough Quality/Degree: mild, productive cough (To moderate yellowish-dean sputum) Possible Cause: no prior episodes Associated Symptoms: cough, muscle aches, nasal congestion, sore throat Allergies/Adverse Reactions: aspirin Allergy (Verified 06/15/23 21:55) cyclobenzaprine [From Flexeril] Allergy (Verified 06/15/23 21:55) erythromycin base Allergy (Verified 06/15/23 21:55) ibuprofen Allergy (Verified 06/15/23 21:55) naproxen Allergy (Verified 06/15/23 21:55) Penicillins Allergy (Verified 06/15/23 21:55) promethazine [From Phenergan] Allergy (Verified 06/15/23 21:55) Sulfa (Sulfonamide Antibiotics) Allergy (Verified 06/15/23 21:55) tramadol Allergy (Verified 06/15/23 21:55) Hx Tetanus, Diphtheria Vaccination/Date Given: Yes Hx Influenza Vaccination/Date Given: No Hx Pneumococcal Vaccination/Date Given: No Immunizations Up to Date: No Travel Risk - International Travel Have you traveled outside of the country in past 3 weeks: No - Coronavirus Screening Are you exhibiting any of the following symptoms?: Yes Symptoms: Cough: New Onset, Shortness of Breath, Vomiting/Diarrhea, Loss of Taste or Smell, Headaches/Body Aches/Fatigue Close contact with a COVID-19 positive Pt in past 14-21 Days: Yes - Vaccine Status Have you recieved a Covid-19 vaccination: No - Review of Systems Constitutional: No Symptoms Eyes: No Symptoms Ears, Nose, & Throat: Nose Congestion, Throat Pain Respiratory: Cough, Dyspnea (With coughing) Cardiac: No Symptoms Abdominal/Gastrointestinal: Vomiting, Diarrhea, No Abdominal Pain Genitourinary Symptoms: No Symptoms Musculoskeletal: Arthralgias, Myalgias Skin: No Symptoms Neurological: No Symptoms Psychological: No Symptoms Endocrine: No Symptoms Hematologic/Lymphatic: No Symptoms Immunological/Allergic: No Symptoms All Other Systems: Reviewed and Negative - Past Medical History Pertinent Past Medical History: Yes Neurological History: No Pertinent History ENT History: No Pertinent History Cardiac History: No Pertinent History Respiratory History: Asthma Endocrine Medical History: No Pertinent History Musculoskeletal History: No Pertinent History GI Medical History: Gallbladder Disease History: No Pertinent History Psycho-Social History: Bipolar, Depression Female Reproductive Disorders: No Pertinent History Other Medical History: manic bipolar depressive, Schizophrenia, borderline personality, phobias. - Past Surgical History Past Surgical History: Yes Neuro Surgical History: No Pertinent History Cardiac: No Pertinent History Respiratory: No Pertinent History Gastrointestinal: Cholecystectomy Genitourinary: No Pertinent History Musculoskeletal: No Pertinent History Female Surgical History: No Pertinent History Other Surgical History: Gallbladder, Tubal, right ankle fx total of 8 times in the past (never had sx?) - Social History Smoking Status: Current some day smoker How long have you smoked: 25 yrs Exposure to second hand smoke: Yes Drug Use: marijuana Patient Lives Alone: No - Female History Hx Last Menstrual Period: 06/09/23 Hx Now: No - Nursing Vital Signs Nursing Vital Signs: Initial Vital Signs Temperature 97.9 F 06/15/23 21:42 Pulse Rate 90 06/15/23 21:42 Respiratory Rate 17 06/15/23 21:42 Blood Pressure 142/78 06/15/23 21:42 O2 Sat by Pulse Oximetry 100 06/15/23 21:42 Pain Scale Pain Intensity 5 - Physical Exam General Appearance: no apparent distress, alert, anxiety Eye Exam: PERRL/EOMI, eyes nml inspection Ears, Nose, Throat Exam: normal ENT inspection, moist mucous membranes Neck Exam: normal inspection, non-tender, supple, full range of motion Respiratory Exam: normal breath sounds, lungs clear, airway intact, No chest tenderness, No respiratory distress Cardiovascular Exam: regular rate/rhythm, normal heart sounds, normal peripheral pulses Gastrointestinal/Abdomen Exam: soft, normal bowel sounds, No tenderness Pelvic Exam: adnexal mass Rectal Exam: not done Back Exam: normal inspection, normal range of motion, No CVA tenderness, No vertebral tenderness Extremity Exam: normal inspection, normal range of motion, pelvis stable Neurologic Exam: alert, oriented x 3, cooperative, 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 as tested, normal mood/affect, nml cerebellar function, nml station & gait, sensation nml Skin Exam: normal color, warm, dry Lymphatic Exam: No adenopathy SpO2 Interpretation: normal SpO2: 99 O2 Delivery: Room Air - Course Nursing assessment & vital signs reviewed: Yes Ordered Tests: Active Orders 24 hr Category Date Time Status IV Insertion STAT Care 06/15/23 21:57 Active Pulse Oximetry (ED) STAT Care 06/15/23 21:57 Active CHEST 1 VIEW (PORTABLE) Stat Exams 06/15/23 22:09 Completed BLOOD CULTURE Stat Lab 06/15/23 22:23 Received CBC W DIFF Stat Lab 06/15/23 22:00 Completed CMP Stat Lab 06/15/23 22:00 Completed MONO SCREEN Stat Lab 06/15/23 22:00 Completed Medication Summary Discontinued Medications Generic Name Dose Route Start Last Admin Trade Name Freq PRN Reason Stop Dose Admin Hydrocodone Bitart/Acetaminophen 10 ml 06/15/23 22:03 06/15/23 22:24 Hydrocodone/Acetaminophen 5 Ml Udcup PO 06/15/23 22:04 10 ml STAT STA Administration Hydrocodone Bitart/Acetaminophen Confirm 06/15/23 22:18 Hydrocodone/Acetaminophen 5 Ml Udcup Administered 06/15/23 22:19 Dose 10 ml .ROUTE .STK-MED ONE Methylprednisolone Sodium 0 mg 06/15/23 22:03 06/15/23 22:25 Succinate 125 mg/ Sterile IV 06/15/23 22:04 125 mg Water 2 ml STAT ONE Administration Sodium Chloride 1,000 mls @ 999 mls/hr 06/15/23 21:57 06/15/23 22:25 Sodium Chloride 0.9% 1000 Ml IV 06/15/23 22:57 999 mls/hr .Q1H1M STA Administration Sodium Chloride Confirm 06/15/23 22:18 Sodium Chloride 0.9% 1000 Ml Administered 06/15/23 22:19 Dose 1,000 mls @ ud .ROUTE .STK-MED ONE Methylprednisolone Sodium Succinate Confirm 06/15/23 22:18 Methylprednis Sod Succ 125 Mg/2 Ml Vial Administered 06/15/23 22:19 Dose 125 mg .ROUTE .STK-MED ONE Ondansetron HCl 4 mg 06/15/23 21:57 06/15/23 22:25 Ondansetron Hcl 4 Mg/2 Ml Vial IV 06/15/23 21:58 4 mg STAT STA Administration Ondansetron HCl Confirm 06/15/23 22:17 Ondansetron Hcl 4 Mg/2 Ml Vial Administered 06/15/23 22:18 Dose 4 mg .ROUTE .STK-MED ONE Sterile Water Confirm 06/15/23 22:17 Water For Injection,Sterile 10 Ml Vial Administered 06/15/23 22:18 Dose 10 ml IJ .STK-MED ONE Lab/Rad Data: Laboratory Result Diagrams 06/15/23 22:00 06/15/23 22:00 Laboratory Results 06/15/23 06/15/23 06/15/23 Range/Units 22:02 22:02 22:00 WBC (4.0-10.5) x10^3/uL RBC (4.1-5.4) x10^6/uL Hgb (12.0-16.0) g/dL Hct (35-47) % MCV (78-100) fL MCH (26-32) pg MCHC (32-36) g/dL RDW (11.5-14.0) % Plt Count (150-450) x10^3/uL MPV (7.5-11.0) fL Gran % (36.0-66.0) % Immature Gran % (Auto) (0.00-0.4) % Nucleat RBC Rel Count (0.00-0.1) % Eos # (Auto) (0-0.5) x10^3/uL Immature Gran # (Auto) (0.00-0.03) x10^3u/L Absolute Lymphs (auto) (1.0-4.6) x10^3/uL Absolute Monos (auto) (0.0-1.3) x10^3/uL Absolute Nucleated RBC (0.00-0.01) x10^3u/L Lymphocytes % (24.0-44.0) % Monocytes % (0.0-12.0) % Eosinophils % (0.00-5.0) % Basophils % (0.0-0.4) % Absolute Granulocytes (1.4-6.9) x10^3/uL Basophils # (0-0.4) x10^3/uL Sodium (137-145) mmol/L Potassium (3.5-5.1) mmol/L Chloride (98-107) mmol/L Carbon Dioxide (22-30) mmol/L Anion Gap (5-15) MEQ/L BUN (7-17) mg/dL Creatinine (0.52-1.04) mg/dL Estimated GFR ML/MIN Glucose (74-106) mg/dL Calcium (8.4-10.2) mg/dL Total Bilirubin (0.2-1.3) mg/dL AST (14-36) U/L ALT (0-35) U/L Alkaline Phosphatase (38-126) U/L Serum Total Protein (6.3-8.2) g/dL Albumin (3.5-5.0) g/dL Monoscreen NEGATIVE (NEGATIVE) Influenza Type A Ag NEGATIVE (NEGATIVE) Influenza Type B Ag NEGATIVE (NEGATIVE) RSV (PCR) NEGATIVE (NEGATIVE) SARS-CoV-2 (PCR) NEGATIVE (NEGATIVE) Group A Strep Antibody NOT DETECTED (NEGATIVE) 11/27/23 11/27/23 Range/Units 22:00 22:00 WBC 10.8 H (4.0-10.5) x10^3/uL RBC 5.04 (4.1-5.4) x10^6/uL Hgb 14.9 (12.0-16.0) g/dL Hct 44.5 (35-47) % MCV 88.3 (78-100) fL MCH 29.6 (26-32) pg MCHC 33.5 (32-36) g/dL RDW 12.6 (11.5-14.0) % Plt Count 368 (150-450) x10^3/uL MPV 9.8 (7.5-11.0) fL Gran % 74.4 H (36.0-66.0) % Immature Gran % (Auto) 0.4 (0.00-0.4) % Nucleat RBC Rel Count 0.0 (0.00-0.1) % Eos # (Auto) 0.04 (0-0.5) x10^3/uL Immature Gran # (Auto) 0.04 H (0.00-0.03) x10^3u/L Absolute Lymphs (auto) 2.11 (1.0-4.6) x10^3/uL Absolute Monos (auto) 0.52 (0.0-1.3) x10^3/uL Absolute Nucleated RBC 0.00 (0.00-0.01) x10^3u/L Lymphocytes % 19.5 L (24.0-44.0) % Monocytes % 4.8 (0.0-12.0) % Eosinophils % 0.4 (0.00-5.0) % Basophils % 0.5 (0.0-0.4) % Absolute Granulocytes 8.07 H (1.4-6.9) x10^3/uL Basophils # 0.05 (0-0.4) x10^3/uL Sodium 137 (137-145) mmol/L Potassium 3.6 (3.5-5.1) mmol/L Chloride 108 H (98-107) mmol/L Carbon Dioxide 18 L (22-30) mmol/L Anion Gap 14.0 (5-15) MEQ/L BUN 17 (7-17) mg/dL Creatinine 0.64 (0.52-1.04) mg/dL Estimated GFR 116.7 ML/MIN Glucose 118 H (74-106) mg/dL Calcium 9.6 (8.4-10.2) mg/dL Total Bilirubin 1.20 (0.2-1.3) mg/dL AST 21 (14-36) U/L ALT 21 (0-35) U/L Alkaline Phosphatase 86 (38-126) U/L Serum Total Protein 8.4 H (6.3-8.2) g/dL Albumin 4.6 (3.5-5.0) g/dL Monoscreen (NEGATIVE) Influenza Type A Ag (NEGATIVE) Influenza Type B Ag (NEGATIVE) RSV (PCR) (NEGATIVE) SARS-CoV-2 (PCR) (NEGATIVE) Group A Strep Antibody (NEGATIVE) - Progress Progress: improved, re-examined Air Movement: good Progress Note: 06/15/23 22:07 This patient's medical issue is 1 of moderate complexity. Level complex in the workup performed is based on review of the patient's past medical history, review the patient's medication list, reviewed patient's drug allergy list, history of present illness and physical findings on examination. Workup includes placement of intravenous line, infusion of 1 L normal saline solution, infusion and 4 mg intravenous Zofran, CBC, CMP, viral swabs, group A strep swab, chest x-ray. We will also provide her with 10 mL oral hydrocodone elixir and 125 mg intravenous Solu-Medrol. 06/15/23 23:25 Laboratory data results were interpreted by me. There is no evidence of any acute, emergent findings. Chest x-ray was interpreted by radiologist and there is no evidence of any acute cardiopulmonary process. Counseled pt/family regarding: lab results, diagnosis, need for follow-up, rad results Medical Desision Making - Diagnostic Testing Diagnostic test were ordered, analyzed, and reviewed by me: Yes Radiological Interpretation: Reviewed by me, Teleradiologist Report - Risk of complications The pt has a mod risk of morbidity or mortality based on: Need for prescription drug management - Departure Departure Disposition: Home Clinical Impression: Bronchitis Condition: Stable Critical Care Time: No Referrals: ASAEL BEJARANO PA [Primary Care Provider] - Follow up/PCP as directed Additional Instructions: Drink plenty of liquids. Avoid exposure to any type of smoke. Take your medications as prescribed. Call your primary care provider tomorrow, 06/16/2023, to make arranges for follow-up appointment for further evaluation management including return to work slip if beyond 06/17/2023 Forms: Work/School Release Form Prescriptions: Prednisone 10 mg [Deltasone 10 mg] 10 mg PO TID #12 tablet Hydrocodone/Acetaminophen [Hydrocodone-Acetamn 7.5-325/15] 10 ml PO Q8H PRN #120 ml MDD 30 ml PRN Reason: Cough
[2023-06-15] MEDS ORDERED: Sterile H2O 10 ml IJ ONE (22:17)
[2023-06-15] MEDS ORDERED: Zofran 4 MG/2 ML VIAL ONE (22:17)
[2023-06-15 22:18] LABS: ALBUMIN 4.6 g/dL (3.5-5.0); BILIRUBIN,TOTAL 1.2 mg/dL (0.2-1.3); Calcium 9.6 mg/dL (8.4-10.2); Creatinine 1 0.64 mg/dL (0.52-1.04); EST GLOMERULAR FILTRATION RATE 116.7 ML/MIN; Potassium 3.6 mmol/L (3.5-5.1); Total Protein 8.4 g/dL (6.3-8.2)
[2023-06-15] MEDS ORDERED: solu-MEDROL ONE (22:18)
[2023-06-15] MEDS ORDERED: HYDROCODONE-ACETAMIN 2.5-108/5 ML SOLUTION ONE ×2 (22:18→23:35)
[2023-06-15] MEDS ORDERED: Sodium Chloride 0.9% 1000 ML 1,000 ML ONE (22:18)
[2023-06-15 23:06] VITALS: BP 106/53; PULSE 61; RESP 14
[2023-06-15 23:17] LABS: INFLUENZA A NEGATIVE (NEGATIVE); INFLUENZA B NEGATIVE (NEGATIVE); RESPIRATORY SYNCTIAL VIRUS NEGATIVE (NEGATIVE); SARS-CoV-2 Xpert Express NEGATIVE (NEGATIVE)
--- NOTE | 2023-06-15 23:19 | XRAY ---
CLINICAL HISTORY:Productive cough COMPARISON:None TECHNIQUE:AP portable X-ray chest. FINDINGS: Visualized both lungs appear normal. No consolidation or soft tissue nodular infiltration seen. Both mediastinal and hilar contours are intact. Cardiac size appears normal. Retrocardiac spaces are clear. No significant pathology identified in the visualized skeleton. IMPRESSION: No acute pathology idenified in this chest X-ray. Electronically Signed by: Kumar Campos MD. (06/15/2023 23:15:31 EST)
== END 2023-06-15 23:46 | disposition home or self-care (01) ==
LOC: ED 21:39
DX: J40 Bronchitis, not specified as acute or chronic (principal); R05.1 Acute cough; M79.10 Myalgia, unspecified site; R53.83 Other fatigue; R11.2 Nausea with vomiting, unspecified; R19.7 Diarrhea, unspecified; Z79.52 Long term (current) use of systemic steroids; Z79.891 Long term (current) use of opiate analgesic; Z28.310 Unvaccinated for COVID-19; Z72.0 Tobacco use
CPT/HCPCS: 0241U; 36000; 36415; 71045; 80053; 85025; 86308; 87040; 87651; 93005; 94760; 96374; 96375; 99284; J2405; J2930; A9270-GY

== ENCOUNTER 2023-08-31 21:42 | Emergency (ER) | payer OTHER ==
[2023-08-31 21:51] VITALS: TEMP 97.8; O2SAT 98
[2023-08-31] MEDS ORDERED: NORCO 5/325 MG ONE (22:26)
[2023-08-31] MEDS: NORCO 5/325 MG PO ONE ×2 (22:27→22:45)
--- NOTE | 2023-08-31 22:30 | ERPHSYRPT ---
- History of Present Illness Time Seen by Provider: 08/31/23 22:20 Source: patient Exam Limitations: no limitations Patient Subjective Stated Complaint: eating tonight and broke tooth off Triage Nursing Assessment: pt ambulated into ER without diff, cousin at bedside. Pt is alert and oriented x4. Pt broke a tooth off tonight on the upper right side eating a jamaican smith. Pt describes the pain as throbbing and aching up into her ear and down her neck. Physician History: 37yo f presents for tooth pain that started around 2hr prior to presentation. Pt states she was eating jamaican fries and felt a crunch and then severe pain, states she believes a piece of her top molar broke off. Pt reports significant dental hx w/ multiple broken teeth in past, states she has been trying to get in to be seen by dentist for several weeks. Pt denies any fevers, chills, difficulty swallowing, sore throat. Timing/Duration: today, hour(s) (2) Severity: mild Modifying Factors: Improves With: eating Associated Symptoms: denies symptoms, No vomiting, No chills, No fever, No headaches Allergies/Adverse Reactions: aspirin Allergy (Verified 08/31/23 21:57) cyclobenzaprine [From Flexeril] Allergy (Verified 08/31/23 21:57) erythromycin base Allergy (Verified 08/31/23 21:57) ibuprofen Allergy (Verified 08/31/23 21:57) naproxen Allergy (Verified 08/31/23 21:57) Penicillins Allergy (Verified 08/31/23 21:57) promethazine [From Phenergan] Allergy (Verified 08/31/23 21:57) Sulfa (Sulfonamide Antibiotics) Allergy (Verified 08/31/23 21:57) tramadol Allergy (Verified 08/31/23 21:57) Home Medications: No Reportable Medications [No Reported Medications] 08/31/23 [History] Hx Tetanus, Diphtheria Vaccination/Date Given: Yes Hx Influenza Vaccination/Date Given: No Hx Pneumococcal Vaccination/Date Given: No Immunizations Up to Date: No Travel Risk - International Travel Have you traveled outside of the country in past 3 weeks: No - Coronavirus Screening Are you exhibiting any of the following symptoms?: No Close contact with a COVID-19 positive Pt in past 14-21 Days: No - Vaccine Status Have you recieved a Covid-19 vaccination: No - Review of Systems Constitutional: No Symptoms Ears, Nose, & Throat: Mouth Pain, No Mouth Swelling, No Throat Swelling, No Painful Swallowing Respiratory: No Symptoms Cardiac: No Symptoms Abdominal/Gastrointestinal: No Symptoms - Past Medical History Pertinent Past Medical History: Yes Neurological History: No Pertinent History ENT History: No Pertinent History Cardiac History: No Pertinent History Respiratory History: Asthma Endocrine Medical History: No Pertinent History Musculoskeletal History: No Pertinent History GI Medical History: Gallbladder Disease History: No Pertinent History Psycho-Social History: Bipolar, Depression Female Reproductive Disorders: No Pertinent History Other Medical History: manic bipolar depressive, Schizophrenia, borderline personality, phobias. - Past Surgical History Past Surgical History: Yes Neuro Surgical History: No Pertinent History Cardiac: No Pertinent History Respiratory: No Pertinent History Gastrointestinal: Cholecystectomy Genitourinary: No Pertinent History Musculoskeletal: No Pertinent History Female Surgical History: Tubal Ligation Other Surgical History: Gallbladder, Tubal, right ankle fx total of 11 times in the past (never had sx - Social History Smoking Status: Current every day smoker How long have you smoked: 25 yrs Exposure to second hand smoke: Yes Drug Use: none Patient Lives Alone: No - Female History Hx Last Menstrual Period: last week Hx Now: No - Nursing Vital Signs Nursing Vital Signs: Initial Vital Signs Temperature 97.8 F 08/31/23 21:50 Pulse Rate 85 08/31/23 21:50 Blood Pressure 109/49 08/31/23 21:50 O2 Sat by Pulse Oximetry 98 08/31/23 21:50 Pain Scale Pain Intensity 8 - Physical Exam General Appearance: no apparent distress Ears, Nose, Throat Exam: moist mucous membranes, other (right side upper molar appears fractured, no bleeding observed, no obvious oral abscess, no TTP of maxilla or zygomatic arch), No pharyngeal erythema Neck Exam: normal inspection, non-tender Respiratory Exam: normal breath sounds Cardiovascular Exam: regular rate/rhythm SpO2 Interpretation: normal SpO2: 98 O2 Delivery: Room Air Ordered Tests: Medication Summary Discontinued Medications Generic Name Dose Route Start Last Admin Trade Name Freq PRN Reason Stop Dose Admin Hydrocodone Bitart/Acetaminophen 1 tab 08/31/23 22:24 08/31/23 22:27 Hydrocodone/Apap 5/325 1 Tab Tablet PO 08/31/23 22:25 1 tab STAT ONE Administration Hydrocodone Bitart/Acetaminophen Confirm 02/12/24 22:26 Hydrocodone/Apap 5/325 1 Tab Tablet Administered 08/31/23 22:27 Dose 3 tab .ROUTE .STK-MED ONE Hydrocodone Bitart/Acetaminophen 2 tab 08/31/23 22:44 08/31/23 22:45 Hydrocodone/Apap 5/325 1 Tab Tablet PO 08/31/23 22:45 2 tab SENT HOME W/ PATIENT ONE Administration - Progress Progress: improved Progress Note: 08/31/23 22:31 given PO norco 5mg x1 - pt reports she has tolerated in past pt has documented allergies to ibuprofen and tramadol 08/31/23 22:55 pain signficantly improved plan for dc home w/ 2 norco 5mg tabelts instructed to schedule appt w/ dentist as soon as possible return to ED if sx worsen, fever spikes Medical Desision Making - Diagnostic Testing Diagnostic test were ordered, analyzed, and reviewed by me: No - Risk of complications Minimal Risk: Minimal risk of morbidity - Departure Departure Disposition: Home Clinical Impression: Tooth pain Condition: Stable Critical Care Time: No Referrals: ASAEL BEJARANO PA [Primary Care Provider] - Follow up/PCP as directed Additional Instructions: plan for dc home w/ 2 norco 5mg tabelts instructed to schedule appt w/ dentist as soon as possible return to ED if sx worsen, fever spikes
[2023-08-31 23:06] VITALS: BP 107/42; PULSE 77; RESP 17
== END 2023-08-31 23:07 | disposition home or self-care (01) ==
LOC: ED 21:42
DX: K08.89 Other specified disorders of teeth and supporting structures (principal); Z28.310 Unvaccinated for COVID-19; Z72.0 Tobacco use
CPT/HCPCS: 99282; A9270-GY

== ENCOUNTER 2023-10-10 17:25 | Emergency (ER) | payer OTHER ==
[2023-10-10 19:54] VITALS: RESP 18; TEMP 96.7
--- NOTE | 2023-10-10 20:39 | ERPHSYRPT ---
- History of Present Illness Time Seen by Provider: 10/10/23 20:30 Source: patient Patient Subjective Stated Complaint: pt states that she has had pain to rt ankle for the past 6 months. pt states that she was told she had ligament damage and was told to wear a walking boot for 6 months Triage Nursing Assessment: pt ambulated into the er; pt transfer to cot per self; pt is axo x4; c/o rt ankle pain; pt states 9/10 pain to rt ankle; swelling present to lateral rt ankle; strong rt pedal pulse; good cap refill to rt foot; skin PDW; no respiratory distress present; hypertensive Physician History: 37yo f presents to ED by private vehicle for right ankle pain for 6mo. Pt states she has hx of significant ankle/foot injuries, has been seen by multiple podiatrists in the past. Pt reports she has had increased swelling in the ankle for the past 2d, denies any recent injury or trauma to the ankle/foot, denies any single inciting event that caused swelling to start. Pt does endorse some pain that radiates from the ankle up the lateral aspect of the gaines. Method of Injury: unknown Occurred: other (6mos ) Quality: intermittent Severity of Pain-Max: mild Severity of Pain-Current: mild Lower Extremities Pain: foot: right, ankle: right Modifying Factors: Improves With: nothing Associated Symptoms: none Allergies/Adverse Reactions: aspirin Allergy (Verified 10/10/23 19:42) cyclobenzaprine [From Flexeril] Allergy (Verified 10/10/23 19:42) erythromycin base Allergy (Verified 10/10/23 19:42) ibuprofen Allergy (Verified 10/10/23 19:42) naproxen Allergy (Verified 10/10/23 19:42) Penicillins Allergy (Verified 10/10/23 19:42) promethazine [From Phenergan] Allergy (Verified 10/10/23 19:42) Sulfa (Sulfonamide Antibiotics) Allergy (Verified 10/10/23 19:42) tramadol Allergy (Verified 10/10/23 19:42) Home Medications: No Reportable Medications [No Reported Medications] 08/31/23 [History] Hx Tetanus, Diphtheria Vaccination/Date Given: Yes Hx Influenza Vaccination/Date Given: No Hx Pneumococcal Vaccination/Date Given: No Travel Risk - International Travel Have you traveled outside of the country in past 3 weeks: No - Emerging Infectious Disease Are you exhibiting symptoms associated with any current EIDs: No - Review of Systems Constitutional: No Symptoms Respiratory: No Symptoms Cardiac: No Symptoms Abdominal/Gastrointestinal: No Symptoms Musculoskeletal: Arthralgias, Joint Pain, Joint Swelling, No Back Pain - Past Medical History Pertinent Past Medical History: Yes Neurological History: No Pertinent History ENT History: No Pertinent History Cardiac History: No Pertinent History Respiratory History: Asthma Endocrine Medical History: No Pertinent History Musculoskeletal History: No Pertinent History GI Medical History: Gallbladder Disease History: No Pertinent History Psycho-Social History: Bipolar, Depression Female Reproductive Disorders: No Pertinent History Other Medical History: manic bipolar depressive, Schizophrenia, borderline personality, phobias. - Past Surgical History Past Surgical History: Yes Neuro Surgical History: No Pertinent History Cardiac: No Pertinent History Respiratory: No Pertinent History Gastrointestinal: Cholecystectomy Genitourinary: No Pertinent History Musculoskeletal: No Pertinent History Female Surgical History: Tubal Ligation Other Surgical History: Gallbladder, Tubal, right ankle fx total of 11 times in the past (never had sx - Female History Hx Now: No - Social History Smoking Status: Current every day smoker How long have you smoked: 25 yrs Exposure to second hand smoke: Yes Drug Use: none Patient Lives Alone: No - Nursing Vital Signs Nursing Vital Signs: Initial Vital Signs Pulse Rate 61 10/10/23 19:42 Blood Pressure 128/102 10/10/23 19:42 O2 Sat by Pulse Oximetry 99 10/10/23 19:42 Pain Scale Pain Intensity 3 - Physical Exam General Appearance: no apparent distress, alert Cardiovascular/Respiratory Exam: chest non-tender, normal breath sounds, regular rate/rhythm, heart sounds normal, no respiratory distress Ankle Exam: right ankle: ecchymosis, pain, soft tissue tenderness, swelling, other (negative dueñas test; no bony tenderness over malleoli) Foot Exam: right foot: ecchymosis, swelling Neuro/Tendon Exam: normal sensation, normal motor functions, normal tendon functions, responds to pain Mental Status Exam: alert, oriented x 3 SpO2 Interpretation: normal SpO2: 99 O2 Delivery: Room Air Ordered Tests: Active Orders 24 hr Category Date Time Status ANKLE (3 VIEWS) Stat Exams 10/10/23 20:38 Taken FOOT (MINIMUM 3 VIEWS) Stat Exams 10/10/23 20:38 Taken Medication Summary Discontinued Medications Generic Name Dose Route Start Last Admin Trade Name Freq PRN Reason Stop Dose Admin Hydrocodone Bitart/Acetaminophen 1 tab 10/10/23 20:41 10/10/23 20:51 Hydrocodone/Apap 5/325 1 Tab Tablet PO 10/10/23 20:42 1 tab STAT ONE Administration Hydrocodone Bitart/Acetaminophen 2 tab 10/10/23 20:42 10/10/23 20:57 Hydrocodone/Apap 5/325 1 Tab Tablet PO 10/10/23 20:43 2 tab SENT HOME W/ PATIENT ONE Administration Hydrocodone Bitart/Acetaminophen Confirm 10/10/23 20:50 Hydrocodone/Apap 5/325 1 Tab Tablet Administered 10/10/23 20:51 Dose 3 tab .ROUTE .STK-MED ONE - Progress Progress: improved Progress Note: 10/10/23 22:26 no acute fx on imaging pain improved w/ norco given 2 tablets of 5mg norco to take home instructed to f/u w/ podiatry outpatient this coming week - Dr Suarez Ice/heat as tolerated, elevate to improve swelling Counseled pt/family regarding: diagnosis, need for follow-up, rad results Medical Desision Making - Risk of complications Minimal Risk: Minimal risk of morbidity - Departure Departure Disposition: Home Clinical Impression: Right ankle pain Qualifiers: Chronicity: chronic Qualified Code(s): M25.571 - Pain in right ankle and joints of right foot Condition: Stable Critical Care Time: No Referrals: ASAEL BEJARANO PA [Primary Care Provider] - Follow up/PCP as directed Instructions: Ankle sprain Additional Instructions: no acute fx on imaging pain improved w/ norco given 2 tablets of 5mg norco to take home instructed to f/u w/ podiatry outpatient this coming week - Dr Suarez Ice/heat as tolerated, elevate to improve swelling
[2023-10-10] MEDS ORDERED: NORCO 5/325 MG ONE (20:50)
[2023-10-10] MEDS: NORCO 5/325 MG PO ONE ×2 (20:51→20:57)
[2023-10-10 22:26] VITALS: BP 103/61; PULSE 62
[2023-10-10 22:28] VITALS: O2SAT 99
--- NOTE | 2023-10-11 08:48 | XRAY ---
Indication: Pain. Comparison: April 14, 2023 3 view right ankle unchanged again demonstrating tiny heterotopic ossification tip medial malleolus. No new/acute bony, articular, or soft tissue abnormalities.
--- NOTE | 2023-10-11 08:50 | XRAY ---
Indication: Pain. Comparison: None 3 nonweightbearing views right foot obtained. No bony, articular, or soft tissue abnormalities.
== END 2023-10-10 22:40 | disposition home or self-care (01) ==
LOC: ED 17:25
DX: Z72.0 Tobacco use (principal)
CPT/HCPCS: 73610; 73630; 99283; A9270-GY

== ENCOUNTER 2023-10-28 21:57 | Emergency (ER) | payer OTHER ==
[2023-10-28 22:33] VITALS: TEMP 97.7
--- NOTE | 2023-10-28 22:57 | ERPHSYRPT ---
- History of Present Illness Time Seen by Provider: 10/28/23 22:30 Source: patient Exam Limitations: no limitations Patient Subjective Stated Complaint: pt states that she has broke her ankle 7 times. pt states that she was told by the ortho clinic they could not get her in until december 30 and needs a referral from her primary doctor too. Triage Nursing Assessment: pt ambulated into the er; pt is axo x3; c/o rt ankle pain; pt states 8/10 to rt ankle; swelling to rt ankle; strong rt pedal ankle; good cap refill to [facility]; no deformity to rt ankle; skin PDW; no respiratory distress present; vitals wnl Physician History: Patient is a 37-year-old female presents to our ED for a podiatry referral. Patient states she currently has a podiatry referral for her right ankle scheduled for December 30 but patient states she needs a sooner appointment. Patient reports that she has a history of 7 ankle fractures. No recent injuries or sprains. Patient declined a x-ray of her right ankle stating that it is not needed she simply wants her current podiatry appointment moved up. Patient declined pain medication. Patient's pain described as an ache that is localized no radiation. Pain worse with weightbearing. The quality and magnitude of her pain has not changed. Patient otherwise feels well. She voices no other complaints or concerns at this time. Portions of this note were created with voice recognition technology. There may be grammatical, spelling, punctuation or sound alike errors Timing/Duration: week(s) Severity: moderate Modifying Factors: Improves With: nothing Associated Symptoms: denies symptoms Allergies/Adverse Reactions: aspirin Allergy (Verified 10/28/23 22:19) cyclobenzaprine [From Flexeril] Allergy (Verified 10/28/23 22:19) erythromycin base Allergy (Verified 10/28/23 22:19) ibuprofen Allergy (Verified 10/28/23 22:19) naproxen Allergy (Verified 10/28/23 22:19) Penicillins Allergy (Verified 10/28/23 22:19) promethazine [From Phenergan] Allergy (Verified 10/28/23 22:19) Sulfa (Sulfonamide Antibiotics) Allergy (Verified 10/28/23 22:19) tramadol Allergy (Verified 10/28/23 22:19) Home Medications: No Reportable Medications [No Reported Medications] 08/31/23 [History] Hx Tetanus, Diphtheria Vaccination/Date Given: Yes Hx Influenza Vaccination/Date Given: No Hx Pneumococcal Vaccination/Date Given: No Immunizations Up to Date: No Travel Risk - International Travel Have you traveled outside of the country in past 3 weeks: No - Emerging Infectious Disease Are you exhibiting symptoms associated with any current EIDs: No - Review of Systems Constitutional: No Symptoms, No Fever, No Chills Eyes: No Symptoms Ears, Nose, & Throat: No Symptoms Respiratory: No Symptoms, No Cough, No Dyspnea Cardiac: No Symptoms, No Chest Pain, No Edema, No Syncope Abdominal/Gastrointestinal: No Symptoms, No Abdominal Pain, No Nausea, No Vomiting, No Diarrhea Genitourinary Symptoms: No Symptoms, No Dysuria Musculoskeletal: No Symptoms, No Back Pain, No Neck Pain Skin: No Symptoms, No Rash Neurological: No Symptoms, No Dizziness, No Focal Weakness, No Sensory Changes Psychological: No Symptoms Endocrine: No Symptoms Hematologic/Lymphatic: No Symptoms Immunological/Allergic: No Symptoms All Other Systems: Reviewed and Negative - Past Medical History Pertinent Past Medical History: Yes Neurological History: No Pertinent History ENT History: No Pertinent History Cardiac History: No Pertinent History Respiratory History: Asthma Endocrine Medical History: No Pertinent History Musculoskeletal History: No Pertinent History GI Medical History: Gallbladder Disease History: No Pertinent History Psycho-Social History: Bipolar, Depression Female Reproductive Disorders: No Pertinent History Other Medical History: manic bipolar depressive, Schizophrenia, borderline personality, phobias. - Past Surgical History Past Surgical History: Yes Neuro Surgical History: No Pertinent History Cardiac: No Pertinent History Respiratory: No Pertinent History Gastrointestinal: Cholecystectomy Genitourinary: No Pertinent History Musculoskeletal: No Pertinent History Female Surgical History: Tubal Ligation Other Surgical History: Gallbladder, Tubal, right ankle fx total of 11 times in the past (never had sx - Female History Hx Now: No - Social History Smoking Status: Current every day smoker How long have you smoked: 25 yrs Exposure to second hand smoke: Yes Drug Use: none Patient Lives Alone: No - Nursing Vital Signs Nursing Vital Signs: Initial Vital Signs Temperature 97.7 F 10/28/23 22:19 Pulse Rate 91 H 10/28/23 22:19 Respiratory Rate 18 10/28/23 22:19 Blood Pressure 140/99 10/28/23 22:19 O2 Sat by Pulse Oximetry 140 H 10/28/23 22:19 Pain Scale Pain Intensity 8 - Physical Exam General Appearance: no apparent distress, alert Eye Exam: PERRL/EOMI, eyes nml inspection Ears, Nose, Throat Exam: normal ENT inspection, TMs normal, pharynx normal, moist mucous membranes Neck Exam: normal inspection, non-tender, supple, full range of motion Respiratory Exam: normal breath sounds, lungs clear, airway intact, No respiratory distress Cardiovascular Exam: regular rate/rhythm, normal heart sounds, normal peripheral pulses Gastrointestinal/Abdomen Exam: soft, normal bowel sounds, No tenderness, No mass Back Exam: normal inspection, normal range of motion, No CVA tenderness, No vertebral tenderness Extremity Exam: normal inspection, normal range of motion, pelvis stable Neurologic Exam: alert, oriented x 3, cooperative, normal mood/affect, nml cerebellar function, nml station & gait, sensation nml, No motor deficits Skin Exam: normal color, warm, dry, No rash Lymphatic Exam: No adenopathy SpO2 Interpretation: normal SpO2: 100 O2 Delivery: Room Air - Course Nursing assessment & vital signs reviewed: Yes Ordered Tests: Medication Summary Discontinued Medications Generic Name Dose Route Start Last Admin Trade Name Freq PRN Reason Stop Dose Admin Acetaminophen 975 mg 10/28/23 22:55 Acetaminophen 325 Mg Tablet PO 10/28/23 22:56 STAT ONE - Progress Progress: improved Counseled pt/family regarding: diagnosis, need for follow-up - Departure Departure Disposition: Home Clinical Impression: Ankle pain, right Condition: Stable Critical Care Time: No Referrals: ASAEL BEJARANO PA [Primary Care Provider] - Follow up/PCP as directed Additional Instructions: Discharge/Care Plan SAMANTHA ELMORE was seen on 10/28/23 in the Emergency Room. The patient was counseled regarding Diagnosis,Lab results, Imaging studies, need for follow up and when to return to the Emergency Room. Prescriptions given: Discharge Note I have spoken with the patient and/or caregivers. I have explained the patient's condition, diagnosis and treatment plan based on the information available to me at this time. I have answered the patient's and/or caregiver's questions and addressed any concerns. The patient and/or caregivers have as good understanding of the patient's diagnosis, condition and treatment plan as can be expected at this point. The vital signs have been stable. The patient's condition is stable and appropriate for discharge from the emergency department. The patient will pursue further outpatient evaluation with the primary care physician or other designated or consulting physician as outlined in the discharge instructions. The patient and/or caregivers are agreeable to this plan of care and follow-up instructions have been explained in detail. The patient and/or caregivers have received these instruction. The patient/and or caregivers are aware that any significant change in condition or worsening of symptoms should prompt an immediate return to this or the closest emergency department or call 911. Outpatient Orders: Ortho Referral Time Frame: 1 Day, Facility: [facility], Location: [facility]
[2023-10-28 23:03] VITALS: O2SAT 100
[2023-10-28] MEDS ORDERED: TYLENOL 325 MG ONE (23:04)
[2023-10-28] MEDS: TYLENOL 325 MG PO ONE (23:04)
[2023-10-28 23:06] VITALS: BP 109/78; PULSE 84; RESP 16
== END 2023-10-28 23:27 | disposition home or self-care (01) ==
LOC: ED 21:57
DX: M25.571 Pain in right ankle and joints of right foot (principal); Z72.0 Tobacco use; Z87.81 Personal history of (healed) traumatic fracture
CPT/HCPCS: 99281; A9270-GY

== ENCOUNTER 2023-11-03 08:15 | Emergency (ER) | payer OTHER ==
[2023-11-03 08:39] VITALS: TEMP 97.9
[2023-11-03] MEDS ORDERED: TYLENOL 325 MG ONE (09:02)
[2023-11-03] MEDS: TYLENOL 325 MG PO ONE (09:03)
[2023-11-03 09:06] LABS: Absolute Neutrophil Ct (ANC) 6.74 x10^3/uL (1.4-6.9); BASOPHIL % 0.2 % (0.0-0.4); Basophil (Absolute #) 0.02 x10^3/uL (0-0.4); Eosinophil % 0.1 % (0.00-5.0); Eosinophil (Absolute #) 0.01 x10^3/uL (0-0.5); Hematocrit 39.4 % (35-47); Hemoglobin 13.1 g/dL (12.0-16.0); IMMATURE GRAN # 0.05 x10^3u/L (0.00-0.03); IMMATURE GRAN % 0.6 % (0.00-0.4); Lymphocyte (Absolute #) 1.52 x10^3/uL (1.0-4.6); Lymphocytes % 17.7 % (24.0-44.0); Mean Cell Volume 90.4 fL (78-100); Mean Corpuscular Hgb Concent. 33.2 g/dL (32-36); Mean Platelet Volume 9.8 fL (7.5-11.0); Monocyte (Absolute #) 0.23 x10^3/uL (0.0-1.3); Monocytes % 2.7 % (0.0-12.0); Neutrophil % 78.7 % (36.0-66.0); Platelet Count 346 x10^3/uL (150-450); Red Blood Count 4.36 x10^6/uL (4.1-5.4); Red Cell Distribution Width 12.6 % (11.5-14.0); White Blood Count 8.6 x10^3/uL (4.0-10.5)
[2023-11-03 09:22] LABS: ALBUMIN 3.8 g/dL (3.5-5.0); ANION GAP 11.9 MEQ/L (5-15); BILIRUBIN,TOTAL 0.3 mg/dL (0.2-1.3); Calcium 8.5 mg/dL (8.4-10.2); Creatinine 1 0.72 mg/dL (0.52-1.04); EST GLOMERULAR FILTRATION RATE 110.4 ML/MIN; Potassium 3.9 mmol/L (3.5-5.1); Total Protein 7.1 g/dL (6.3-8.2)
--- NOTE | 2023-11-03 09:22 | ERPHSYRPT ---
- History of Present Illness Time Seen by Provider: 11/03/23 08:30 Source: patient Exam Limitations: no limitations Patient Subjective Stated Complaint: Pt states that she broke her right foot approx 11 times and has issues with compensating when walking and is wearing ifeoma e kind of brace on her right foot that was given to her from Chadd Randall, pt states that she now has pain going up her leg and back and states that her right arm is numb/tingly Triage Nursing Assessment: Pt brought self to the ER, hypertensive, rates pain as 10/10, pulses normal, skin n/w/d, tearful, pain with palpatation to the right side of her back, denies any pain on the left side, pt walked slowly and unsteady into the ER room Physician History: 37-year-old female presents to our ED as a referral from orthopedic clinic for cardiac evaluation. Patient was being seen orthopedics for pain to her right foot. Patient states she has a history of 11 foot fractures. While in orthopedic clinic patient states that the pain was radiating up into her neck and her right arm. Patient associated symptoms are right arm tingling. Patient had some shortness of breath. Patient referred to our ED for a workup. Patient also complains of pain to her right calf. Symptoms are constant. Symptoms are moderate in intensity. Palpation to her right foot worsens pain. Patient currently has a right foot brace that was applied in the orthopedic clinic. Patient voices no other complaints or concerns at this time. Portions of this note were created with voice recognition technology. There may be grammatical, spelling, punctuation or sound alike errors Timing/Duration: today Severity: moderate Modifying Factors: Improves With: nothing Associated Symptoms: denies symptoms Allergies/Adverse Reactions: aspirin Allergy (Verified 10/28/23 22:19) cyclobenzaprine [From Flexeril] Allergy (Verified 10/28/23 22:19) erythromycin base Allergy (Verified 10/28/23 22:19) ibuprofen Allergy (Verified 10/28/23 22:19) naproxen Allergy (Verified 10/28/23 22:19) Penicillins Allergy (Verified 11/03/23 08:32) promethazine [From Phenergan] Allergy (Verified 10/28/23 22:19) Sulfa (Sulfonamide Antibiotics) Allergy (Verified 10/28/23 22:19) tramadol Allergy (Verified 10/28/23 22:19) Home Medications: No Reportable Medications [No Reported Medications] 08/31/23 [History] Hx Tetanus, Diphtheria Vaccination/Date Given: Yes Hx Influenza Vaccination/Date Given: No Hx Pneumococcal Vaccination/Date Given: No Travel Risk - International Travel Have you traveled outside of the country in past 3 weeks: No - Emerging Infectious Disease Are you exhibiting symptoms associated with any current EIDs: No - Review of Systems Constitutional: No Symptoms, No Fever, No Chills Eyes: No Symptoms Ears, Nose, & Throat: No Symptoms Respiratory: No Symptoms, No Cough, No Dyspnea Cardiac: No Symptoms, No Chest Pain, No Edema, No Syncope Abdominal/Gastrointestinal: No Abdominal Pain, No Nausea, No Vomiting, No Diarrhea Genitourinary Symptoms: No Symptoms, No Dysuria Musculoskeletal: No Symptoms, No Back Pain, No Neck Pain Skin: No Symptoms, No Rash Neurological: No Symptoms, No Dizziness, No Focal Weakness, No Sensory Changes Psychological: No Symptoms Endocrine: No Symptoms Hematologic/Lymphatic: No Symptoms Immunological/Allergic: No Symptoms All Other Systems: Reviewed and Negative - Past Medical History Pertinent Past Medical History: Yes Neurological History: No Pertinent History ENT History: No Pertinent History Cardiac History: No Pertinent History Respiratory History: Asthma Endocrine Medical History: No Pertinent History Musculoskeletal History: No Pertinent History, Fractures GI Medical History: Gallbladder Disease History: No Pertinent History Psycho-Social History: Bipolar, Depression Female Reproductive Disorders: No Pertinent History Other Medical History: manic bipolar depressive, Schizophrenia, borderline personality, phobias. - Past Surgical History Past Surgical History: Yes Neuro Surgical History: No Pertinent History Cardiac: No Pertinent History Respiratory: No Pertinent History Gastrointestinal: Cholecystectomy Genitourinary: No Pertinent History Musculoskeletal: No Pertinent History Female Surgical History: Tubal Ligation Other Surgical History: Gallbladder, Tubal, right ankle fx total of 11 times in the past (never had sx - Female History Hx Now: No (tubal) - Social History Smoking Status: Current every day smoker How long have you smoked: 25 yrs Exposure to second hand smoke: Yes Drug Use: marijuana Patient Lives Alone: No - Nursing Vital Signs Nursing Vital Signs: Initial Vital Signs Temperature 97.9 F 11/03/23 08:24 Pulse Rate 75 11/03/23 08:24 Blood Pressure 152/100 11/03/23 08:24 O2 Sat by Pulse Oximetry 96 04/16/24 08:24 Pain Scale Pain Intensity [] 10 Pain Intensity 4 - Physical Exam General Appearance: no apparent distress, alert Eye Exam: PERRL/EOMI, eyes nml inspection Ears, Nose, Throat Exam: normal ENT inspection, TMs normal, pharynx normal, moist mucous membranes Neck Exam: normal inspection, non-tender, supple, full range of motion Respiratory Exam: normal breath sounds, lungs clear, No respiratory distress Cardiovascular Exam: regular rate/rhythm, normal heart sounds, normal peripheral pulses Gastrointestinal/Abdomen Exam: soft, normal bowel sounds, No tenderness, No mass Back Exam: normal inspection, normal range of motion, No CVA tenderness, No vertebral tenderness Extremity Exam: normal inspection, normal range of motion, pelvis stable, deborah's sign, other (Positive right Homans' sign. There is a right foot ankle brace applied. The involved extremities neurovascular tact distally compartments are soft cap refill less than 2 seconds.) Neurologic Exam: alert, oriented x 3, cooperative, normal mood/affect, nml cerebellar function, nml station & gait, sensation nml, No motor deficits Skin Exam: normal color, warm, dry, No rash Lymphatic Exam: No adenopathy SpO2: 97 - Course Nursing assessment & vital signs reviewed: Yes EKG Interpreted by Me: RATE, Sinus Rhythm, NORMAL AXIS, NORMAL INTERVALS - Radiology Ultrasound Exam Venous Lower Extremity Ultrasound: discussed w/radiologist (Per furnace packer negative right lower extremity DVT study.) Ordered Tests: Active Orders 24 hr Category Date Time Status Pediatric Speech Language Pathologist STAT Care 11/03/23 08:54 Active EKG-ER Only STAT Care 11/03/23 08:53 Active IV Insertion STAT Care 11/03/23 08:53 Active Pulse Oximetry (ED) STAT Care 11/03/23 08:53 Active VENOUS UNILAT/LIMITED EXTREMIT [US] Stat Exams 11/03/23 09:17 Completed CBC W DIFF Stat Lab 11/03/23 09:02 Completed CMP Stat Lab 11/03/23 09:02 Completed D-DIMER QUANTITATIVE Stat Lab 11/03/23 09:02 Completed TROPONIN Q4H Lab 11/03/23 09:02 Completed TROPONIN Q4H Lab 11/03/23 12:03 Completed TROPONIN Q4H Lab 11/03/23 17:00 Ordered Medication Summary Discontinued Medications Generic Name Dose Route Start Last Admin Trade Name Freq PRN Reason Stop Dose Admin Acetaminophen 975 mg 11/03/23 08:58 11/03/23 09:03 Acetaminophen 325 Mg Tablet PO 11/03/23 08:59 975 mg STAT ONE Administration Acetaminophen Confirm 11/03/23 09:02 Acetaminophen 325 Mg Tablet Administered 11/03/23 09:03 Dose 975 mg .ROUTE .STK-MED ONE Morphine Sulfate 2 mg 11/03/23 10:07 11/03/23 10:16 Morphine Sulfate 2 Mg/Ml Inj IM 11/03/23 10:08 2 mg STAT ONE Administration Morphine Sulfate Confirm 11/03/23 10:09 Morphine Sulfate 2 Mg/Ml Inj Administered 11/03/23 10:10 Dose 2 mg .ROUTE .STK-MED ONE Morphine Sulfate Confirm 11/03/23 10:12 Morphine Sulfate 2 Mg/Ml Inj Administered 11/03/23 10:13 Dose 2 mg .ROUTE .STK-MED ONE Lab/Rad Data: Laboratory Result Diagrams 11/03/23 09:02 11/03/23 09:02 Laboratory Results 11/03/23 11/03/23 11/03/23 Range/Units 12:03 09:02 09:02 WBC (4.0-10.5) x10^3/uL RBC (4.1-5.4) x10^6/uL Hgb (12.0-16.0) g/dL Hct (35-47) % MCV (78-100) fL MCH (26-32) pg MCHC (32-36) g/dL RDW (11.5-14.0) % Plt Count (150-450) x10^3/uL MPV (7.5-11.0) fL Gran % (36.0-66.0) % Immature Gran % (Auto) (0.00-0.4) % Nucleat RBC Rel Count (0.00-0.1) % Eos # (Auto) (0-0.5) x10^3/uL Immature Gran # (Auto) (0.00-0.03) x10^3u/L Absolute Lymphs (auto) (1.0-4.6) x10^3/uL Absolute Monos (auto) (0.0-1.3) x10^3/uL Absolute Nucleated RBC (0.00-0.01) x10^3u/L Lymphocytes % (24.0-44.0) % Monocytes % (0.0-12.0) % Eosinophils % (0.00-5.0) % Basophils % (0.0-0.4) % Absolute Granulocytes (1.4-6.9) x10^3/uL Basophils # (0-0.4) x10^3/uL D-Dimer 0.42 (0.0-0.50) mg/L Sodium (135-145) mmol/L Potassium (3.5-5.1) mmol/L Chloride (98-107) mmol/L Carbon Dioxide (22-30) mmol/L Anion Gap (5-15) MEQ/L BUN (7-17) mg/dL Creatinine (0.52-1.04) mg/dL Estimated GFR ML/MIN Glucose (74-106) mg/dL Calcium (8.4-10.2) mg/dL Total Bilirubin (0.2-1.3) mg/dL AST (14-36) U/L ALT (0-35) U/L Alkaline Phosphatase (38-126) U/L Troponin I < 0.012 < 0.012 (0.000-0.033) ng/mL Serum Total Protein (6.3-8.2) g/dL Albumin (3.5-5.0) g/dL 11/03/23 11/03/23 Range/Units 09:02 09:02 WBC 8.6 (4.0-10.5) x10^3/uL RBC 4.36 (4.1-5.4) x10^6/uL Hgb 13.1 (12.0-16.0) g/dL Hct 39.4 (35-47) % MCV 90.4 (78-100) fL MCH 30.0 (26-32) pg MCHC 33.2 (32-36) g/dL RDW 12.6 (11.5-14.0) % Plt Count 346 (150-450) x10^3/uL MPV 9.8 (7.5-11.0) fL Gran % 78.7 H (36.0-66.0) % Immature Gran % (Auto) 0.6 H (0.00-0.4) % Nucleat RBC Rel Count 0.0 (0.00-0.1) % Eos # (Auto) 0.01 (0-0.5) x10^3/uL Immature Gran # (Auto) 0.05 H (0.00-0.03) x10^3u/L Absolute Lymphs (auto) 1.52 (1.0-4.6) x10^3/uL Absolute Monos (auto) 0.23 (0.0-1.3) x10^3/uL Absolute Nucleated RBC 0.00 (0.00-0.01) x10^3u/L Lymphocytes % 17.7 L (24.0-44.0) % Monocytes % 2.7 (0.0-12.0) % Eosinophils % 0.1 (0.00-5.0) % Basophils % 0.2 (0.0-0.4) % Absolute Granulocytes 6.74 (1.4-6.9) x10^3/uL Basophils # 0.02 (0-0.4) x10^3/uL D-Dimer (0.0-0.50) mg/L Sodium 140 (135-145) mmol/L Potassium 3.9 (3.5-5.1) mmol/L Chloride 112 H (98-107) mmol/L Carbon Dioxide 20 L (22-30) mmol/L Anion Gap 11.9 (5-15) MEQ/L BUN 17 (7-17) mg/dL Creatinine 0.72 (0.52-1.04) mg/dL Estimated GFR 110.4 ML/MIN Glucose 153 H (74-106) mg/dL Calcium 8.5 (8.4-10.2) mg/dL Total Bilirubin 0.30 (0.2-1.3) mg/dL AST 18 (14-36) U/L ALT 20 (0-35) U/L Alkaline Phosphatase 80 (38-126) U/L Troponin I (0.000-0.033) ng/mL Serum Total Protein 7.1 (6.3-8.2) g/dL Albumin 3.8 (3.5-5.0) g/dL - Progress Progress: improved Progress Note: 37-year-old female presents to our ED as a referral from orthopedic clinic for evaluation of pain to her right upper extremity with some shortness of breath. Workup essentially nonremarkable. Patient has a history of asthma fracture gallbladder disease. EKG reveals normal sinus rhythm. D-dimer negative. Troponin negative x 2. Patient currently asymptomatic. Ultrasound right lower extremity negative for DVT. Patient has no significant cardiovascular risk factors. Heart score is a 2. Will discharge home. Patient agrees to follow-up with her primary care doctor within 48 hours for evaluation. Portions of this note were created with voice recognition technology. There may be grammatical, spelling, punctuation or sound alike errors Complexity problem addressed is moderate acute complicated Critical care time Complexity of data reviewed and analyzed is moderate. Test ordered test reviewe d results analyzed and correlated clinically with history and physical exam. Risk of complication and or risk of morbidity/mortality of patient management is low. Vital stable. Time spent to discharge patient is approximately 15 minutes. Plan of care established for shared decision making. No social determinants of health present impede follow-up. 11/03/23 14:08 11/03/23 14:09 Counseled pt/family regarding: lab results, diagnosis, need for follow-up - Departure Departure Disposition: Home Clinical Impression: Arm pain Condition: Stable Critical Care Time: No Referrals: ASAEL BEJARANO PA [Primary Care Provider] - Follow up/PCP as directed Additional Instructions: Discharge/Care Plan SAMANTHA ELMORE was seen on 11/03/23 in the Emergency Room. The patient was counseled regarding Diagnosis,Lab results, Imaging studies, need for follow up and when to return to the Emergency Room. Prescriptions given: Discharge Note I have spoken with the patient and/or caregivers. I have explained the patient's condition, diagnosis and treatment plan based on the information available to me at this time. I have answered the patient's and/or caregiver's questions and addressed any concerns. The patient and/or caregivers have as good understanding of the patient's diagnosis, condition and treatment plan as can be expected at this point. The vital signs have been stable. The patient's condition is stable and appropriate for discharge from the emergency department. The patient will pursue further outpatient evaluation with the primary care physician or other designated or consulting physician as outlined in the discharge instructions. The patient and/or caregivers are agreeable to this plan of care and follow-up instructions have been explained in detail. The patient and/or caregivers have received these instruction. The patient/and or caregivers are aware that any significant change in condition or worsening of symptoms should prompt an immediate return to this or the closest emergency department or call 911.
--- NOTE | 2023-11-03 09:49 | XRAY ---
Indication: Calf pain. Two-dimensional sonogram and color Doppler imaging major venous vessels right leg performed. Comparison: None No thrombus seen in the examined deep venous vessels right leg including greater saphenous vein. Veins demonstrate normal compressibility. Venous waveforms are normal with and without augmentation. Impression: Right leg negative for DVT.
[2023-11-03] MEDS ORDERED: MORPHINE SULFATE 2 MG INJ ONE ×2 (10:09→10:12)
[2023-11-03] MEDS: MORPHINE SULFATE 2 MG INJ IM ONE (10:16)
[2023-11-03 12:26] VITALS: O2SAT 97
[2023-11-03 14:17] VITALS: BP 103/71; PULSE 59; RESP 16
== END 2023-11-03 14:16 | disposition home or self-care (01) ==
LOC: ED 08:15
DX: M79.601 Pain in right arm (principal); R06.02 Shortness of breath; M79.604 Pain in right leg; J45.909 Unspecified asthma, uncomplicated; F17.200 Nicotine dependence, unspecified, uncomplicated
CPT/HCPCS: 36415; 80053; 84484; 85025; 85379; 93005; 93041; 93971; 94760; 96372; 99284; J2270; A9270-GY

== ENCOUNTER 2023-12-05 20:42 | Emergency (ER) | payer OTHER ==
--- NOTE | 2023-12-05 20:59 | ERPHSYRPT ---
- History of Present Illness Time Seen by Provider: 12/05/23 20:58 Source: patient Exam Limitations: no limitations Physician History: This is a 37-year-old morbidly obese white female patient who is being followed as an outpatient by her orthopedic clinic and has an appointment to see Dr. Wright (podiatry) on January 07, 2024. Patient broke her right ankle 8 to 9 months ago and she has had intermittent pain in the right foot and ankle. I reviewed the outpatient studies including a right foot x-ray that was negative for acute fracture or dislocation on 10/10/2023, a negative right venous Doppler performed on 11/03/2023 and a right lower extremity MRI of the right ankle which did not show any acute fracture or dislocation on 11/11/2023. Patient has been using Tylenol and Prozac for pain control. However, 2 days ago the pain became significant and was shooting proximally to her posterior thigh and buttock on the right side. Patient is not short of breath. Patient does not have chest pain. She has not been coughing Method of Injury: unknown Occurred: other (Chronic intermittent without any precipitating factor most recently) Quality: sharpness, stabbing Severity of Pain-Max: moderate Severity of Pain-Current: moderate Lower Extremities Pain: foot: right, ankle: right Modifying Factors: Improves With: movement Associated Symptoms: unable to bear weight Allergies/Adverse Reactions: aspirin Allergy (Verified 12/05/23 21:12) cyclobenzaprine [From Flexeril] Allergy (Verified 12/05/23 21:12) erythromycin base Allergy (Verified 12/05/23 21:12) ibuprofen Allergy (Verified 12/05/23 21:12) naproxen Allergy (Verified 12/05/23 21:12) Penicillins Allergy (Verified 12/05/23 21:12) promethazine [From Phenergan] Allergy (Verified 12/05/23 21:12) Sulfa (Sulfonamide Antibiotics) Allergy (Verified 12/05/23 21:12) tramadol Allergy (Verified 12/05/23 21:12) Home Medications: Duloxetine HCl 30 mg [Cymbalta 30 MG Capsule] 30 mg PO DAILY 12/05/23 [History] Hx Tetanus, Diphtheria Vaccination/Date Given: Yes Hx Influenza Vaccination/Date Given: No Hx Pneumococcal Vaccination/Date Given: No Travel Risk - International Travel Have you traveled outside of the country in past 3 weeks: No - Emerging Infectious Disease Are you exhibiting symptoms associated with any current EIDs: No - Review of Systems Constitutional: No Symptoms Eyes: No Symptoms Ears, Nose, & Throat: No Symptoms Respiratory: No Symptoms Cardiac: No Symptoms Abdominal/Gastrointestinal: No Symptoms Genitourinary Symptoms: No Symptoms Musculoskeletal: Joint Pain (Right foot and ankle) Skin: No Symptoms Neurological: No Symptoms Psychological: No Symptoms Endocrine: Excessive Sweating Hematologic/Lymphatic: No Symptoms Immunological/Allergic: No Symptoms All Other Systems: Reviewed and Negative - Past Medical History Pertinent Past Medical History: Yes Neurological History: No Pertinent History ENT History: No Pertinent History Cardiac History: No Pertinent History Respiratory History: Asthma Endocrine Medical History: No Pertinent History Musculoskeletal History: No Pertinent History, Fractures GI Medical History: Gallbladder Disease History: No Pertinent History Psycho-Social History: Bipolar, Depression Female Reproductive Disorders: No Pertinent History Other Medical History: manic bipolar depressive, Schizophrenia, borderline personality, phobias. - Past Surgical History Past Surgical History: Yes Neuro Surgical History: No Pertinent History Cardiac: No Pertinent History Respiratory: No Pertinent History Gastrointestinal: Cholecystectomy Genitourinary: No Pertinent History Musculoskeletal: No Pertinent History Female Surgical History: Tubal Ligation Other Surgical History: Gallbladder, Tubal, right ankle fx total of 11 times in the past (never had sx - Social History Smoking Status: Current every day smoker How long have you smoked: 25 yrs Exposure to second hand smoke: Yes Drug Use: marijuana Patient Lives Alone: No - Nursing Vital Signs Nursing Vital Signs: Initial Vital Signs Temperature 98.2 F 12/05/23 21:13 Pulse Rate 81 12/05/23 21:13 Respiratory Rate 20 12/05/23 21:13 Blood Pressure 131/80 12/05/23 21:13 O2 Sat by Pulse Oximetry 98 12/05/23 21:13 Pain Scale Pain Intensity 10 - Physical Exam General Appearance: no apparent distress, alert, anxiety, obese Eyes, Ears, Nose, Throat Exam: normal ENT inspection, moist mucous membranes Neck Exam: normal inspection, non-tender, supple, full range of motion Cardiovascular/Respiratory Exam: chest non-tender, no respiratory distress Gastrointestinal/Abdominal Exam: non-tender Back Exam: normal inspection, normal range of motion, No CVA tenderness, No vert ebral tenderness Hips Exam: bilateral: non-tender, normal inspection, normal range of motion, no evidence of injury Legs Exam: bilateral leg: non-tender, normal inspection, normal range of motion, no evidence of injury Knees Exam: bilateral knee: non-tender, normal inspection, normal range of motion, no evidence of injury Ankle Exam: right ankle: bone tenderness, soft tissue tenderness, left ankle: non-tender, bilateral ankle: normal inspection, normal range of motion, no evidence of injury Foot Exam: right foot: bone tenderness, soft tissue tenderness, left foot: non- tender, bilateral foot: normal inspection, normal range of motion, no evidence of injury Neuro/Tendon Exam: normal sensation, normal motor functions, normal tendon functions, responds to pain, no evidence tendon injury Mental Status Exam: alert, oriented x 3, cooperative Skin Exam: normal color, warm, dry SpO2 Interpretation: normal O2 Delivery: Room Air - Course Nursing assessment & vital signs reviewed: Yes Ordered Tests: Active Orders 24 hr Category Date Time Status ANKLE (3 VIEWS) Stat Exams 12/05/23 21:45 Completed FOOT (MINIMUM 3 VIEWS) Stat Exams 12/05/23 21:45 Completed Medication Summary Discontinued Medications Generic Name Dose Route Start Last Admin Trade Name Eleazarq PRN Reason Stop Dose Admin Oxycodone/Acetaminophen 2 tab 12/05/23 22:39 12/05/23 22:57 Oxycodone Hcl/Apap 5 Mg/325 Mg Tablet PO 12/05/23 22:40 2 tab SENT HOME W/ PATIENT STA Administration Oxycodone/Acetaminophen Confirm 12/05/23 22:53 Oxycodone Hcl/Apap 5 Mg/325 Mg Tablet Administered 12/05/23 22:54 Dose 2 tab .ROUTE .STK-MED ONE - Progress Progress: improved, pain not gone completely, re-examined Progress Note: 12/05/23 21:57 My medical decision making and the assignment of low complexity to this patient's medical issue is based on review of the patient's past medical history, review of outpatient radiographic studies, review of the patient's medication list, review the patient drug allergy list, history present illness and physical findings on examination. The workup in this patient includes an x- ray of the right foot and ankle. I will have the radiologist review this. Differential diagnoses include fracture/dislocation right foot and right ankle, malingering, drug-seeking behavior 12/05/23 22:42 This patient has no evidence of acute trauma to the area. There is no deformity present. There is palpable pedal pulses. There is no evidence of infection externally. I interpreted the preliminary report on patient's right ankle. There is no evidence of any acute fracture or dislocation I interpreted the preliminary report of the patient's right foot. There is no evidence of any acute fracture or dislocation. We will await the final report from the radiologist before discharging this patient. 12/05/23 23:41 The final report of the right ankle x-ray interpreted by the radiologist shows no acute fracture or dislocation. There are arthritic changes present. The final report of the right foot x-ray was interpreted by the radiologist and shows no acute fracture or dislocation. There are arthritic changes present. Counseled pt/family regarding: diagnosis, need for follow-up, rad results Medical Desision Making - Independent Historian Additional History obtained from: Relative/friend - Diagnostic Testing Diagnostic test were ordered, analyzed, and reviewed by me: Yes Radiological Interpretation: Interpreted by me, Reviewed by me, Teleradiologist Report - Risk of complications The pt has a mod risk of morbidity or mortality based on: Need for prescription drug management - Departure Departure Disposition: Home Clinical Impression: Right ankle pain, Right foot pain Condition: Stable Critical Care Time: No Referrals: ASAEL BEJARANO PA [Primary Care Provider] - Follow up/PCP as directed Instructions: Ankle sprain Additional Instructions: Ice pack to area 3 times a day for the next 48 hours. Call your prescribing provider and your pulp plant supervisor on 12/07/2023 for further evaluation and management including management of your outpatient pain control Prescriptions: Oxycodone HCl/Acetaminophen [Percocet 5-325 mg Tablet] 1 each PO Q8H PRN PRN #4 tablet MDD 3 PRN Reason: Moderate To Severe Pain
[2023-12-05 21:22] VITALS: TEMP 98.2
[2023-12-05] MEDS ORDERED: PERCOCET TABLET 5/325MG ONE (22:53)
[2023-12-05] MEDS: PERCOCET TABLET 5/325MG PO STA (22:57)
[2023-12-05 23:16] VITALS: RESP 18
[2023-12-05 23:17] VITALS: BP 134/82; PULSE 72; O2SAT 99
--- NOTE | 2023-12-05 23:35 | XRAY ---
CLINICAL HISTORY: Right foot and ankle pain COMPARISON: None TECHNIQUE: X-ray of the right foot AP lateral and oblique views FINDINGS: Tiny osteophytes are noted along the medial malleolus. The other cortical margins of the osseous structures are within normal limits. Articular margins are intact at other points. Normal bone mineral density is noted. Radiological examination of the foot demonstrates no lytic or sclerotic bone lesion. No definite fracture is visible. Normal metatarsophalangeal and interphalangeal joint spaces at other places. No focal abnormality is seen in the great toe. IMPRESSION: Minimal arthritis changes involving the ankle joint. No acute osseous abnormality is noted. DISCLAIMER:A subtle bone abnormality or fracture may not be readily apparent on x-rays, thus clinical correlation and further imaging including follow up CT, MRI, or follow up x-rays are advised as needed. Electronically Signed by: Kumar Campos MD. (12/05/2023 23:31:00 EDT)
--- NOTE | 2023-12-05 23:37 | XRAY ---
CLINICAL HISTORY: Right foot and ankle pain COMPARISON: None. TECHNIQUE: X-ray of the right ankle joint AP lateral and oblique views FINDINGS: Minimal to mild Osteoarthritis changes involving the ankle joint. The other cortical margins of the osseous structures are within normal limits. Articular margins are intact at other points. Normal bone mineral density is noted. Radiological examination of the foot demonstrates no lytic or sclerotic bone lesion. No definite fracture is visible. Normal metatarsophalangeal and interphalangeal joint spaces at other places. No focal abnormality is seen in the great toe. IMPRESSION: Minimal to mild Osteoarthritis changes involving the ankle joint. No acute bony abnormality is noted. DISCLAIMER:A subtle bone abnormality or fracture may not be readily apparent on x-rays, thus clinical correlation and further imaging including follow up CT, MRI, or follow up x-rays are advised as needed. Electronically Signed by: Kumar Campos MD. (12/05/2023 23:32:28 EDT)
== END 2023-12-05 23:46 | disposition home or self-care (01) ==
LOC: ED 20:42
DX: M25.571 Pain in right ankle and joints of right foot (principal); M79.671 Pain in right foot; Z79.891 Long term (current) use of opiate analgesic; Z79.899 Other long term (current) drug therapy; Z72.0 Tobacco use
CPT/HCPCS: 73610; 73630; 99283; A9270-GY

== ENCOUNTER 2024-01-14 16:51 | Emergency (ER) | payer OTHER ==
[2024-01-14 17:11] VITALS: TEMP 97.7
[2024-01-14] MEDS ORDERED: TORAdol 30 mg Injection ONE (17:31)
[2024-01-14] MEDS: TORAdol 30 mg Injection IV ONE (17:35)
--- NOTE | 2024-01-14 17:44 | ERPHSYRPT ---
- History of Present Illness Time Seen by Provider: 01/14/24 16:54 Historian: patient Exam Limitations: no limitations Patient Subjective Stated Complaint: C/O chest pain that started at 1100 today. Patient indicates that she ran out of her oxycodone yesterday and doesn't go back to pain management until tomorrow. Triage Nursing Assessment: Patient brought back to ER in a W/C. She is alert and oriented. Diaphoretic. No SOB. Anxious. AGGARWAL WNL; indicates she can't bear weight to right foot due to needing an ankle procedure that she is scheduled for on 01/26/24. Physician History: 38 years old female with history of anxiety/depression/schizophrenia/borderline personality disorder, chronic pain who was at pain clinic and is sent in here as she ran out of pain medication and pain clinic does not want to give her pain medication but wants to do some procedures after getting MRI done. As per patient she has been getting oxycodone for pain from primary care every week. She filled last prescription on the and ran out and now her primary care is not in the office until Thursday. She reports having some kind of surgical procedure to be done by podiatry in the right foot and ankle area. Patient reports having right-sided chest pain since 11 AM today, continuous, moderate to severe sharp, nonradiating, aggravated with movements and certain direction and palpation. Partial relief being still. Aspirin Treatment Today: no aspirin today Allergies/Adverse Reactions: aspirin Allergy (Verified 01/14/24 16:54) cyclobenzaprine [From Flexeril] Allergy (Verified 01/14/24 16:54) erythromycin base Allergy (Verified 01/14/24 16:54) ibuprofen Allergy (Verified 01/14/24 16:54) naproxen Allergy (Verified 01/14/24 16:54) Penicillins Allergy (Verified 01/14/24 16:54) promethazine [From Phenergan] Allergy (Verified 01/14/24 16:54) Sulfa (Sulfonamide Antibiotics) Allergy (Verified 01/14/24 16:54) tramadol Allergy (Verified 01/14/24 16:54) Home Medications: Duloxetine HCl 30 mg [Cymbalta 30 MG Capsule] 30 mg PO DAILY 12/05/23 [History] Hx Tetanus, Diphtheria Vaccination/Date Given: Yes (Last tetanus 2018) Hx Influenza Vaccination/Date Given: No Hx Pneumococcal Vaccination/Date Given: No Immunizations Up to Date: Yes Travel Risk - International Travel Have you traveled outside of the country in past 3 weeks: No - Emerging Infectious Disease Are you exhibiting symptoms associated with any current EIDs: No - Review of Systems Constitutional: No Symptoms Ears, Nose, & Throat: No Symptoms Respiratory: No Symptoms Cardiac: Chest Pain Abdominal/Gastrointestinal: No Symptoms Genitourinary Symptoms: No Symptoms Musculoskeletal: Arthralgias, Back Pain Skin: No Symptoms Neurological: No Symptoms Psychological: Anxiety, Depression Endocrine: No Symptoms Hematologic/Lymphatic: No Symptoms Immunological/Allergic: No Symptoms - Past Medical History Pertinent Past Medical History: Yes Neurological History: No Pertinent History ENT History: No Pertinent History Cardiac History: No Pertinent History Respiratory History: Asthma Endocrine Medical History: No Pertinent History Musculoskeletal History: No Pertinent History, Fractures GI Medical History: Gallbladder Disease History: No Pertinent History Psycho-Social History: Anxiety, Bipolar, Depression Female Reproductive Disorders: No Pertinent History Other Medical History: manic bipolar depressive, Schizophrenia, borderline personality, phobias. - Past Surgical History Past Surgical History: Yes Neuro Surgical History: No Pertinent History Cardiac: No Pertinent History Respiratory: No Pertinent History Gastrointestinal: Cholecystectomy Genitourinary: No Pertinent History Musculoskeletal: No Pertinent History Female Surgical History: Tubal Ligation Other Surgical History: Gallbladder, Tubal, right ankle fx total of 11 times in the past (never had sx - Female History Hx Now: No (tubal) - Social History Smoking Status: Current every day smoker How long have you smoked: 26 yrs Exposure to second hand smoke: Yes Drug Use: other Patient Lives Alone: No - Social Determinants of Health Will the patient participate in the screening: Yes Do you worry about a steady place to live?: No Do you have any problems with any of the following?: No known problems In the past 12 months,have you had to go without utilities?: No Transportation Issues: No Has anyone in your support network made you feel unsafe?: No Have you or anyone in your house had to go without enough: No - Nursing Vital Signs Nursing Vital Signs: Initial Vital Signs Temperature 97.7 F 01/14/24 16:56 Pulse Rate 95 H 01/14/24 16:56 Respiratory Rate 12 01/14/24 16:56 Blood Pressure 135/92 01/14/24 16:56 O2 Sat by Pulse Oximetry 99 01/14/24 16:56 Pain Scale Pain Intensity 0 - Physical Exam General Appearance: no apparent distress, alert, anxiety Eye Exam: PERRL/EOMI Ears, Nose, Throat Exam: normal ENT inspection Neck Exam: normal inspection, full range of motion Respiratory Exam: normal breath sounds, chest tenderness (Right anterior chest wall tenderness. No rash, no crepitus.), lungs clear Cardiovascular Exam: regular rate/rhythm, normal heart sounds Gastrointestinal/Abdomen Exam: soft, normal bowel sounds, No tenderness Back Exam: normal inspection Extremity Exam: normal inspection, pelvis stable Neurologic Exam: alert, oriented x 3, cooperative Skin Exam: normal color SpO2 Interpretation: normal SpO2: 99 O2 Delivery: Room Air - Course EKG Interpreted by Me: RATE (97), Sinus Rhythm, NORMAL AXIS, Q-wave, Non- specific ST Changes Ordered Tests: Medication Summary Discontinued Medications Generic Name Dose Route Start Last Admin Trade Name Freq PRN Reason Stop Dose Admin Lactated Ringer's 1,000 mls @ 999 mls/hr 01/14/24 18:30 01/14/24 19:54 Lactated Ringers IV 02/13/24 18:29 Not Given .Q1H1M TONY Lactated Ringer's Confirm 01/14/24 18:43 Lactated Ringers Administered 01/14/24 18:44 Dose 1,000 mls @ ud IV .STK-MED ONE Ketorolac Tromethamine 30 mg 01/14/24 17:21 01/14/24 17:35 Ketorolac Tromethamine 30 Mg/Ml Inj IV 01/14/24 17:22 30 mg STAT ONE Administration Ketorolac Tromethamine Confirm 01/14/24 17:31 Ketorolac Tromethamine 30 Mg/Ml Inj Administered 01/14/24 17:32 Dose 30 mg .ROUTE .STK-MED ONE Lab/Rad Data: Laboratory Result Diagrams 01/14/24 17:20 01/14/24 20:10 Laboratory Results 01/14/24 01/14/24 01/14/24 Range/Units 20:10 20:10 17:30 WBC (3.98-10.04) x10^3/uL RBC (3.93-5.22) x10^6/uL Hgb (11.2-15.7) g/dL Hct (34.1-44.9) % MCV (79.4-94.8) fL MCH (25.6-32.2) pg MCHC (32.2-35.5) g/dL RDW (11.7-14.4) % Plt Count (182-369) x10^3/uL MPV (9.4-12.3) fL Gran % (34.0-71.1) % Immature Gran % (Auto) (0.001-0.429) % Nucleat RBC Rel Count (0.00-0.2) % Eos # (Auto) (0.04-0.36) x10^3/uL Immature Gran # (Auto) (0.001-0.031) x10^3u/L Absolute Lymphs (auto) (1.18-3.74) x10^3/uL Absolute Monos (auto) (0.24-0.86) x10^3/uL Absolute Nucleated RBC (0.00-0.012) x10^3u/L Lymphocytes % (19.3-51.7) % Monocytes % (4.7-12.5) % Eosinophils % (0.7-5.8) % Basophils % (0.1-1.2) % Absolute Granulocytes (1.56-6.13) x10^3/uL Basophils # (0.01-0.08) x10^3/uL Sodium (135-145) mmol/L Sodium Direct 141 (138-146) mmol/L Potassium 3.8 (3.5-5.1) mmol/L Chloride 108 (98-107) mmol/L Carbon Dioxide 23 L (22-30) mmol/L Anion Gap (5-15) MEQ/L BUN (7-17) mg/dL Venous BUN 21 (8-26) mg/dL Creatinine 0.9 (0.52-1.04) mg/dL Estimated GFR ML/MIN Glucose 99 (74-106) mg/dL Calcium (8.4-10.2) mg/dL Ionized Calcium 1.14 (1.12-1.32) mmol/L Total Bilirubin (0.2-1.3) mg/dL AST (14-36) U/L ALT (0-35) U/L Alkaline Phosphatase (38-126) U/L Creatine Kinase (30-135) U/L Troponin 0.00 0.00 (0.00-0.03) ng/mL Serum Total Protein (6.3-8.2) g/dL Albumin (3.5-5.0) g/dL Serum HCG, Qual (NEGATIVE) 01/14/24 01/14/24 01/14/24 Range/Units 17:20 17:20 17:20 WBC 14.4 H (3.98-10.04) x10^3/uL RBC 4.54 (3.93-5.22) x10^6/uL Hgb 13.8 (11.2-15.7) g/dL Hct 40.9 (34.1-44.9) % MCV 90.1 (79.4-94.8) fL MCH 30.4 (25.6-32.2) pg MCHC 33.7 (32.2-35.5) g/dL RDW 12.8 (11.7-14.4) % Plt Count 391 H (182-369) x10^3/uL MPV 10.2 (9.4-12.3) fL Gran % 73.5 H (34.0-71.1) % Immature Gran % (Auto) 0.5 H (0.001-0.429) % Nucleat RBC Rel Count 0.0 (0.00-0.2) % Eos # (Auto) 0.06 (0.04-0.36) x10^3/uL Immature Gran # (Auto) 0.07 H (0.001-0.031) x10^3u/L Absolute Lymphs (auto) 2.85 (1.18-3.74) x10^3/uL Absolute Monos (auto) 0.80 (0.24-0.86) x10^3/uL Absolute Nucleated RBC 0.00 (0.00-0.012) x10^3u/L Lymphocytes % 19.8 (19.3-51.7) % Monocytes % 5.5 (4.7-12.5) % Eosinophils % 0.4 L (0.7-5.8) % Basophils % 0.3 (0.1-1.2) % Absolute Granulocytes 10.61 H (1.56-6.13) x10^3/uL Basophils # 0.04 (0.01-0.08) x10^3/uL Sodium 139 (135-145) mmol/L Sodium Direct (138-146) mmol/L Potassium 3.4 L (3.5-5.1) mmol/L Chloride 111 H (98-107) mmol/L Carbon Dioxide 15 L* (22-30) mmol/L Anion Gap 17.4 H (5-15) MEQ/L BUN 17 (7-17) mg/dL Venous BUN (8-26) mg/dL Creatinine 0.73 (0.52-1.04) mg/dL Estimated GFR 107.9 ML/MIN Glucose 131 H (74-106) mg/dL Calcium 9.4 (8.4-10.2) mg/dL Ionized Calcium (1.12-1.32) mmol/L Total Bilirubin 0.60 (0.2-1.3) mg/dL AST 27 (14-36) U/L ALT 23 (0-35) U/L Alkaline Phosphatase 86 (38-126) U/L Creatine Kinase 88 (30-135) U/L Troponin (0.00-0.03) ng/mL Serum Total Protein 8.1 (6.3-8.2) g/dL Albumin 4.6 (3.5-5.0) g/dL Serum HCG, Qual NEGATIVE (NEGATIVE) - Progress Progress: improved, re-examined Air Movement: good Progress Note: 01/14/24 21:42 38 years old with multiple psychiatric issues including chronic pain is evaluated for right-sided chest pain. The EKG did not show any acute ST elevations, negative troponins x 2. Given Toradol for symptomatic relief, on reevaluation feeling better. Chest x-ray negative for any acute cardiopulmonary findings. White count of 14, chemistries showed low bicarb, rechecked after fluids and it is improved. Patient does not have any history of CAD in the past and her pain is not very typical of cardiac, more of a musculoskeletal. Patient wants prescription of oxycodone, she is advised to have follow-up with her primary care to get it. Patient got angry and is not happy with the fact that she is not getting pain medications. Outpatient primary care and c ardiology follow-up was recommended. Patient got upset and walked out of the ER without discharge paperwork. Blood Culture(s) Obtained: No Antibiotics given: No Counseled pt/family regarding: lab results, diagnosis, need for follow-up, rad results Medical Desision Making - Diagnostic Testing Diagnostic test were ordered, analyzed, and reviewed by me: Yes Radiological Interpretation: Interpreted by me, Reviewed by me - Risk of complications The pt has a mod risk of morbidity or mortality based on: Need for prescription drug management - Departure Departure Disposition: Home Clinical Impression: Atypical chest pain Condition: Stable Critical Care Time: No Referrals: ASAEL BEJARANO PA [Primary Care Provider] - Follow up with PCP 1 day AUSTIN TYLER [CONSULTING PHYSICIAN] - Follow up/PCP as directed (Call for appointment for evaluation) Instructions: Angina (DC), Chest Pain (DC) Additional Instructions: Take Tylenol as needed for pain. Keep appointment with primary care and pain management. Return to ER for any worsening.
[2024-01-14 17:58] LABS: ALBUMIN 4.6 g/dL (3.5-5.0); ANION GAP 17.4 MEQ/L (5-15); Absolute Neutrophil Ct (ANC) 10.61 x10^3/uL (1.56-6.13); BASOPHIL % 0.3 % (0.1-1.2); BILIRUBIN,TOTAL 0.6 mg/dL (0.2-1.3); Basophil (Absolute #) 0.04 x10^3/uL (0.01-0.08); Calcium 9.4 mg/dL (8.4-10.2); Creatinine 1 0.73 mg/dL (0.52-1.04); EST GLOMERULAR FILTRATION RATE 107.9 ML/MIN; Eosinophil % 0.4 % (0.7-5.8); Eosinophil (Absolute #) 0.06 x10^3/uL (0.04-0.36); Hematocrit 40.9 % (34.1-44.9); Hemoglobin 13.8 g/dL (11.2-15.7); IMMATURE GRAN # 0.07 x10^3u/L (0.001-0.031); IMMATURE GRAN % 0.5 % (0.001-0.429); Lymphocyte (Absolute #) 2.85 x10^3/uL (1.18-3.74); Lymphocytes % 19.8 % (19.3-51.7); Mean Cell Volume 90.1 fL (79.4-94.8); Mean Corpuscular Hemoglobin 30.4 pg (25.6-32.2); Mean Corpuscular Hgb Concent. 33.7 g/dL (32.2-35.5); Mean Platelet Volume 10.2 fL (9.4-12.3); Monocytes % 5.5 % (4.7-12.5); Neutrophil % 73.5 % (34.0-71.1); Platelet Count 391 x10^3/uL (182-369); Potassium 3.4 mmol/L (3.5-5.1); Red Blood Count 4.54 x10^6/uL (3.93-5.22); Red Cell Distribution Width 12.8 % (11.7-14.4); Total Protein 8.1 g/dL (6.3-8.2); White Blood Count 14.4 x10^3/uL (3.98-10.04)
[2024-01-14 18:00] LABS: HCG SERUM TEST NEGATIVE (NEGATIVE)
[2024-01-14] MEDS ORDERED: Lactated Ringers 1,000 ML IV ONE (18:43)
[2024-01-14] MEDS: Lactated Ringers 1,000 ML IV SCH (18:44)
[2024-01-14 20:57] LABS: ISTAT CREA 0.9 mg/dL (0.6-1.3); ISTAT K 3.8 mmol/L (3.5-4.9); ISTAT iCA 1.14 mmol/L (1.12-1.32)
[2024-01-14 21:02] VITALS: BP 117/71; PULSE 57; RESP 13
[2024-01-14 22:07] VITALS: O2SAT 99
--- NOTE | 2024-01-15 08:45 | XRAY ---
Indication: Chest pain. Comparison: June 15, 2023 Portable chest again demonstrates normal heart and lungs. Bony thorax intact again with minimal levoscoliosis. No new/acute findings.
== END 2024-01-14 22:00 | disposition home or self-care (01) ==
LOC: ED 16:51
DX: R07.89 Other chest pain (principal); Z79.899 Other long term (current) drug therapy; Z72.0 Tobacco use
CPT/HCPCS: 36000; 36415; 71045; 80047; 80053; 82550; 84484; 84703; 85025; 93005; 93041; 96374; 99284; J1885

== ENCOUNTER 2024-02-09 05:45 | Day surgery (SDC) | payer OTHER ==
[2024-02-09] MEDS ORDERED: Sodium Chloride 3 ML UD NEBULES IH ONE (05:46)
[2024-02-09] MEDS ORDERED: celeBREX 100 MG ONE (05:59)
[2024-02-09] MEDS ORDERED: CEFAZOLIN 2 GM/100 ML NaCl 2 GM/100 ML IVPB IV ONE (05:59)
[2024-02-09] MEDS: TYLENOL EXTRA STRENGTH 500 MG PO PRN (06:00)
[2024-02-09] MEDS: Decadron 4 MG PO ONE (06:00)
[2024-02-09] MEDS: celeBREX 100 MG PO ONE (06:01)
[2024-02-09] MEDS: Lactated Ringers 1,000 ML IV SCH (06:01)
[2024-02-09] MEDS: NEURONTIN PO ONE (06:01)
[2024-02-09 06:23] VITALS: RESP 18
[2024-02-09] MEDS ORDERED: Xylocaine-Mpf 2% 5 Ml Vial ONE (06:37)
[2024-02-09] MEDS ORDERED: ROCURONIUM BROMIDE IV ONE ×2 (06:37→08:33)
[2024-02-09] MEDS ORDERED: BRIDION 200MG/2ML IV ONE ×2 (06:37→09:27)
[2024-02-09] MEDS ORDERED: Zofran 4 MG/2 ML VIAL ONE (06:37)
[2024-02-09 06:38] LABS: Amphetamine,Urine NEGATIVE (NEGATIVE); Barbiturate,Urine NEGATIVE (NEGATIVE); Benzodiazepine,Urine NEGATIVE (NEGATIVE); Cocaine,Urine NEGATIVE (NEGATIVE); Methadone,Urine NEGATIVE (NEGATIVE); Opiate,Urine POSITIVE (NEGATIVE); PCP,Urine NEGATIVE (NEGATIVE); THC,Urine POSITIVE (NEGATIVE)
[2024-02-09] MEDS ORDERED: DIPRIVAN 200 MG/20 ML IV ONE ×2 (06:38→09:18)
[2024-02-09] MEDS ORDERED: EXPAREL 133 MG/10 ML VIAL IJ ONE (06:40)
[2024-02-09] MEDS ORDERED: Pre-Attached Lta Kit TP ONE (06:40)
[2024-02-09] MEDS ORDERED: Marcaine Mpf 0.5% Vial 30 Ml ONE (06:40)
[2024-02-09] MEDS ORDERED: SUBLIMAZE 100 MCG/2 ML ONE ×2 (06:41→07:57)
[2024-02-09] MEDS ORDERED: Versed 2 MG/2 ML Injection ONE ×2 (06:42→08:13)
[2024-02-09] MEDS ORDERED: Epinephrine Preservative Free 1 MG/ML ONE (06:43)
[2024-02-09] MEDS: CLINDAMYCIN-D5W 900 MG/50 ML*** 900 MG/50 ML BAG IV ONE (06:49)
[2024-02-09] MEDS: DUONEB 0.5-3 MG/3 ml Neb IH ONE (06:50)
[2024-02-09 06:55] LABS: Absolute Neutrophil Ct (ANC) 8.36 x10^3/uL (1.56-6.13); BASOPHIL % 0.3 % (0.1-1.2); Basophil (Absolute #) 0.04 x10^3/uL (0.01-0.08); Eosinophil % 0.8 % (0.7-5.8); Hematocrit 39.2 % (34.1-44.9); Hemoglobin 13.5 g/dL (11.2-15.7); IMMATURE GRAN # 0.05 x10^3u/L (0.001-0.031); IMMATURE GRAN % 0.4 % (0.001-0.429); Lymphocyte (Absolute #) 2.57 x10^3/uL (1.18-3.74); Lymphocytes % 21.7 % (19.3-51.7); Mean Cell Volume 89.3 fL (79.4-94.8); Mean Corpuscular Hemoglobin 30.8 pg (25.6-32.2); Mean Corpuscular Hgb Concent. 34.4 g/dL (32.2-35.5); Mean Platelet Volume 9.6 fL (9.4-12.3); Monocyte (Absolute #) 0.74 x10^3/uL (0.24-0.86); Monocytes % 6.2 % (4.7-12.5); Neutrophil % 70.6 % (34.0-71.1); Platelet Count 393 x10^3/uL (182-369); Red Blood Count 4.39 x10^6/uL (3.93-5.22); Red Cell Distribution Width 12.5 % (11.7-14.4); White Blood Count 11.9 x10^3/uL (3.98-10.04)
[2024-02-09 07:12] LABS: HCG SERUM TEST NEGATIVE (NEGATIVE)
[2024-02-09 07:25] LABS: ALBUMIN 4.3 g/dL (3.5-5.0); BILIRUBIN,TOTAL 0.8 mg/dL (0.2-1.3); Calcium 9.2 mg/dL (8.4-10.2); Creatinine 1 0.55 mg/dL (0.52-1.04); EST GLOMERULAR FILTRATION RATE 120.3 ML/MIN; Potassium 3.5 mmol/L (3.5-5.1); Total Protein 7.8 g/dL (6.3-8.2)
[2024-02-09] MEDS ORDERED: DEXMEDETOMIDINE 80 MCG/20ML-NS IV ONE (07:49)
--- NOTE | 2024-02-09 08:33 | XRAY ---
Indication: Aspiration. Comparison: January 14, 2024 Portable chest demonstrates new endotracheal tube tip at level of autumn. Recommend withdrawal at least 2 cm. New NG tube traverses chest with tip coiled in stomach. Lungs underinflated and clear. Heart not enlarged and bony thorax intact.
[2024-02-09] MEDS ORDERED: Reglan 10 MG/2 ML ONE (08:51)
[2024-02-09] MEDS ORDERED: ALBUTEROL/Proair Hfa MDI IH ONE (09:34)
--- NOTE | 2024-02-09 10:23 | XRAY ---
Indication: Aspiration. Comparison: Taken earlier in the day. Portable chest demonstrates removal endotracheal and NG tubes. Lungs better inflated and remains clear. Heart not enlarged. No new/acute cardiopulmonary abnormalities. Impression: Nonacute chest.
[2024-02-09 11:00] VITALS: TEMP 98
[2024-02-09 11:02] VITALS: BP 118/88; PULSE 78; O2SAT 94
== END 2024-02-09 11:10 | disposition home or self-care (01) ==
LOC: SDC 05:45
PROVIDERS: ATTEND Podiatrist Foot & Ankle Surgery
DX: M25.571 Pain in right ankle and joints of right foot (principal); R11.10 Vomiting, unspecified; Z53.8 Procedure and treatment not carried out for other reasons
CPT/HCPCS: 36415; 71045; 76937; 80053; 80307; 84703; 85025; 93005; 94640; J0171; J0690; J2250; J2405; J2704; J3010; A9270-GY

== ENCOUNTER 2024-03-08 08:40 | Day surgery (SDC) | payer OTHER ==
[2024-03-08] MEDS ORDERED: DIPRIVAN 200 MG/20 ML IV ONE (08:41)
[2024-03-08 08:58] LABS: HCG URINE TEST NEGATIVE (NEGATIVE)
[2024-03-08] MEDS ORDERED: Pepcid 20 MG VIAL IV ONE (09:59)
[2024-03-08] MEDS ORDERED: Lactated Ringers 1,000 ML IV ONE ×2 (09:59→13:55)
[2024-03-08] MEDS: Pepcid 20 MG VIAL IV ONE (10:00)
[2024-03-08] MEDS: Lactated Ringers 1,000 ML IV SCH (10:00)
[2024-03-08 10:02] VITALS: RESP 18
[2024-03-08 10:23] LABS: Hematocrit 37.7 % (34.1-44.9); Mean Cell Volume 89.3 fL (79.4-94.8); Mean Corpuscular Hemoglobin 30.8 pg (25.6-32.2); Mean Corpuscular Hgb Concent. 34.5 g/dL (32.2-35.5); Mean Platelet Volume 9.7 fL (9.4-12.3); Platelet Count 331 x10^3/uL (182-369); Red Blood Count 4.22 x10^6/uL (3.93-5.22); Red Cell Distribution Width 12.5 % (11.7-14.4); White Blood Count 10.7 x10^3/uL (3.98-10.04)
[2024-03-08 10:32] LABS: ALBUMIN 4.1 g/dL (3.5-5.0); ANION GAP 12.5 MEQ/L (5-15); BILIRUBIN,TOTAL 0.9 mg/dL (0.2-1.3); Calcium 9.1 mg/dL (8.4-10.2); Creatinine 1 0.63 mg/dL (0.52-1.04); EST GLOMERULAR FILTRATION RATE 116.4 ML/MIN; Total Protein 7.4 g/dL (6.3-8.2)
[2024-03-08] MEDS ORDERED: CLINDAMYCIN-D5W 900 MG/50 ML*** 900 MG/50 ML BAG IV ONE (11:59)
[2024-03-08] MEDS: CLINDAMYCIN-D5W 900 MG/50 ML*** 900 MG/50 ML BAG IV ONE (12:01)
[2024-03-08] MEDS ORDERED: Versed 2 MG/2 ML Injection ONE (12:13)
[2024-03-08] MEDS ORDERED: Marcaine 0.5%/Epinephrine 10 ML ONE (12:13)
[2024-03-08] MEDS ORDERED: EXPAREL 133 MG/10 ML VIAL IJ ONE (12:16)
[2024-03-08] MEDS ORDERED: Epinephrine Preservative Free 1 MG/ML ONE (12:36)
[2024-03-08] MEDS ORDERED: BREVIBLOC 100 MG/10 ML IV ONE (13:39)
[2024-03-08] MEDS ORDERED: BRIDION 200MG/2ML IV ONE (14:09)
[2024-03-08] MEDS ORDERED: TORAdol 30 mg Injection ONE (14:09)
[2024-03-08] MEDS ORDERED: Decadron 4 MG INJ ONE (14:09)
[2024-03-08] MEDS ORDERED: Zofran 4 MG/2 ML VIAL ONE (14:09)
[2024-03-08] MEDS ORDERED: ROCURONIUM BROMIDE IV ONE (14:09)
[2024-03-08] MEDS ORDERED: DEXMEDETOMIDINE 80 MCG/20ML-NS IV ONE (14:43)
--- NOTE | 2024-03-08 14:56 | XRAY ---
Indication: Right ankle arthroscopy. Intraoperative fluoroscopy provided for 1 minute 7 seconds. Numerous digital spot and cine images submitted for interpretation initially demonstrates metallic localizer tip projecting over anterior talus. Short orthopedic K wire projects over lateral malleolus. Correlate with intraoperative findings/report.
[2024-03-08] MEDS ORDERED: Hydromorphone 1 mg/ml Injection ONE ×2 (15:11→15:37)
[2024-03-08] MEDS ORDERED: SUBLIMAZE 100 MCG/2 ML ONE (15:11)
[2024-03-08 16:42] VITALS: O2SAT 98
--- NOTE | 2024-03-08 16:43 | XRAY ---
One minute and 7 seconds of fluoroscopy was used in surgery for a right ankle arthroscopy.
[2024-03-08 16:46] VITALS: BP 122/72; PULSE 84; TEMP 97.2
--- NOTE | 2024-03-10 12:21 | OP ---
SURGERY DATE/TIME: 03/08/2024 8053 [id number] PREOPERATIVE DIAGNOSES: 1) Right ankle pain. 2) Right ankle osteochondral defect. 3) Right ankle synovitis. 4) Lateral ankle instability. 5) Difficulty with ambulation. POSTOPERATIVE DIAGNOSES: 1) Right ankle pain. 2) Right ankle osteochondral defect. 3) Right ankle synovitis. 4) Lateral ankle instability. 5) Difficulty with ambulation. PROCEDURES: 1) Ankle arthroscopy with complete synovectomy. 2) Microfracture of osteochondral defect arthroscopically. 3) Lateral ankle stabilization with internal brace. SURGEON: Kyle Ly MD TREE TRIMMER HELPER: None. ANESTHESIA: General anesthesia with a preoperative popliteal saphenous block. See Anesthesia report for details. HEMOSTASIS: A thigh tourniquet set to 350 mmHg for a total of 45 total tourniquet minutes. ESTIMATED BLOOD LOSS: Approximately 10 mL. MATERIALS: 4-0 Monocryl, 3-0 nylon, 2-0 Vicryl, Kelli JuggerKnot with a 2.5 Quattro Link for anchoring into the fibula. INJECTABLES: See Anesthesia report for details. INDICATIONS FOR PROCEDURE: The patient is a very pleasant, 38-year-old female known to my service for right osteochondral defect and lateral ankle instability. Patient has been seen which has failed. At this time, patient has been made aware of all options, surgical and conservative. Patient wishes to proceed with surgical intervention at this time. Patient has been made aware of all risks, complications and benefits of the surgical intervention, including but not limited to infection, hematoma, seroma, possibility of delayed wound healing, non-wound healing, failure of surgical intervention, and possible need for further surgical intervention at a later date. No guarantees were provided as to the outcome of surgical intervention. Plenty of time was allowed for the patient and her mother to ask questions, which were answered to her apparent satisfaction, so at this time we have decided to proceed. DESCRIPTION OF PROCEDURE AND FINDINGS: Patient was brought into the PACU prior to the procedure and provided a popliteal and saphenous block to the right lower extremity. See Anesthesia report for details. Following this, the patient was brought in the operating room, placed on the operating room table in the supine position. On the right thigh a well-padded thigh tourniquet was applied and the tourniquet was set to 350 mmHg in direct correlation to her blood pressure. Following this, the right lower extremity was prepped and draped in the typical sterile fashion and lowered onto the surgical field. At this time, medial and lateral landmarks were identified at the medial malleolus, lateral malleolus and the palpable dell of the anterior aspect of the ankle joint. This helped to establish the anteromedial and anterolateral portal site entrance, which were marked utilizing a marking pen. From that standpoint, a 50 mL syringe with lactated ringers was introduced at the anteromedial portal, insufflating the ankle, watching the ankle dorsiflex with the insufflation. Following this, an 11 blade was utilized to make an incision to the level of skin at the anteromedial portal and then, blunt dissection was carried down utilizing a curved mini hemostat. The blunt obturator and trocar were introduced and the obturator was removed. The 4.0 mm, 30-degree camera was then introduced and the joint was inspected. On initial inspection there was a significant amount of hemorrhagic and crab meat synovitis identified at the anterior aspect of the capsule, as well as laterally. A complete synovectomy was performed after establishing the anterolateral portal with an 11 blade and blunt dissection down past the level of the capsule. Shaving took place of all of the hemorrhagic synovitis, as well as the crab meat synovitis. The ATFL was inspected and deemed to be intact, however, elongated. From that standpoint, a significant amount of attention was utilized in performing a 14-point inspection of the anterior ankle joint. At this time, a probe was introduced to the central medial aspect of the tailor dome where the MRI visualized osteochondral defect was present. From that standpoint, the probe did dip into the cartilage and the cartilage was denuded in this area. Decision was made to proceed with the microfracture procedure. The shaver was utilized to junior a hole down to the level of the subchondral plate, removing any devitalized cartilage in the area. From that standpoint, a chondral pick was introduced. Multiple microfractures were performed at this time, seeing fat globules into the joint and then, following this, healthy bleeding into the joint indicating we had broken through the subchondral plate in hopes to stimulate fibrocartilaginous growth. From that standpoint, the remainder of the scope was utilized to clean out the medial and lateral gutters and also assess for constrictors at the anterior aspect of the ankle joint capsule. Following this, the portal sites were removed and then reversed, inspecting . Once again, from opposite aspects cleaning any synovitis as it was identified. From that standpoint, the portals were removed. An Esmarch was utilized to exsanguinate the leg and the tourniquet was then inflated to 350 mmHg. At this time under fluoroscopic guidance, a linear incision was made just posterior to the border of the fibula. Prior to making an incision, an anterior tilt was performed, which was captured with fluoroscopic guidance, demonstrating significant talar tilt and a positive anterior drawer. From that standpoint, the incision was carried down utilizing a 10 blade, being careful not to damage any neurovascular structures at the midline of the fibula and extending to the anterior process of the calcaneus. This was carried down carefully utilizing a combination of blunt and sharp dissection, being careful not to damage any neurovascular structures along the way. Once the ATFL was identified, it was from its attachment at the distal aspect of the fibula, leaving a small cuff for burial of the suture at the end of the procedure. At this time, once the ATFL was reflected and lifted, the drill with drill sleeve was introduced over the site at the lateral talar neck at the of the talus. This was checked under AP and lateral view in order to assess we were not introducing the drill into any articular surfaces. From this standpoint, the drill was carried through and a 2.7 JuggerKnot was then introduced, gaining excellent access without backing out of the suture. From that standpoint, an internal brace was anchored utilizing a 1.45 Quattro Link into the footprint of the ATFL, holding the foot in a dorsiflexed and everted position during this portion of the procedure. From that standpoint, the ATFL was then repaired utilizing a 1.45 JuggerKnot into the fibula just distal and just proximal to the fibular insertion sites. From that standpoint, a Brostrom was performed utilizing the suture anchors, attempting to get a good [id number] interphase of the ATFL. Following this, the inferior extensor retinaculum was then lifted utilizing a Bev and then utilizing 2-0 Vicryl sutured into the ATFL construct, gaining excellent strength in its repair. From that standpoint, a new anterior drawer was performed, as well as talar tilt, which was deemed to be excellent comparatively to earlier intraoperative films. From that standpoint, copious amounts of sterile saline were utilized to flush the surgical site. A 2-0 Vicryl was then utilized to coapt the subcutaneous edges in a simple interrupted buried-type fashion and then following this, a 3-0 nylon was utilized in a horizontal mattress-type fashion to coapt the skin edges in an everted-type fashion. Following this, a dressing was applied consisting of iodine, Adaptic, 4 x 4, Kerlix, ABD and a well-padded posterior splint. Patient was then reversed from anesthesia and returned to the postoperative care unit with vital signs stable and vascular status intact. Patient handled the anesthesia, as well as the procedure, without significant complication. Postoperative orders as indicated in the patient's discharge chart.
== END 2024-03-08 16:47 | disposition home or self-care (01) ==
LOC: SDC 08:40
PROVIDERS: ATTEND Podiatrist Foot & Ankle Surgery
DX: M65.871 Other synovitis and tenosynovitis, right ankle and foot (principal); M25.571 Pain in right ankle and joints of right foot; M93.271 Osteochondritis dissecans, right ankle and joints of right foot; M25.371 Other instability, right ankle; R26.2 Difficulty in walking, not elsewhere classified
CPT/HCPCS: 27698; 29891; 29898; 36415; 73610; 76000; 76937; 80053; 81025; 85027; C1713; J0171; J1100; J1170; J1885; J2250; J2405; J2704; J3010

== ENCOUNTER 2024-04-27 14:47 | Emergency (ER) | payer OTHER ==
[2024-04-27 15:28] VITALS: BP 135/59; TEMP 98.5; O2SAT 96
[2024-04-27] MEDS: NORCO 5/325 MG PO ONE (16:13)
[2024-04-27] MEDS ORDERED: NORCO 5/325 MG ONE (16:13)
--- NOTE | 2024-04-27 16:34 | XRAY ---
Indication: Pain. Comparison: December 05, 2023 3 nonweightbearing views right foot obtained. No new/acute bony, articular, or soft tissue abnormalities.
--- NOTE | 2024-04-27 16:43 | ERPHSYRPT ---
- History of Present Illness Time Seen by Provider: 04/27/24 14:52 Source: patient Exam Limitations: no limitations Patient Subjective Stated Complaint: Right foot pain Triage Nursing Assessment: Patient wheeled back to ED using knee scooter and tr ansferred to bed per self. Patient A+O X.3 Patient's skin pink, warm and dry. Patient complains of right foot pain after her daughter accidently stepped on it. Patient had recent right foot surgery on 04/08/[address] Mehta. Patient is out of pain meds and is dealing with her pain managment to get more pain meds. Patient complains of pain to right foot 03/29. Physician History: 38 years old female with recent right foot and ankle surgery by podiatry here at [facility] presented in the ER with complaints of increasing pain in the right foot after her 13-year-old daughter accidentally stepped on it yesterday. Patient reports moderate to severe sharp pain, more with movements and weightbearing. Has swelling of right ankle which is not any worse than usual. Patient has contract with pain management but currently not taking any pain medication at home Allergies/Adverse Reactions: aspirin Allergy (Verified 04/27/24 15:15) cyclobenzaprine [From Flexeril] Allergy (Verified 04/27/24 15:15) erythromycin base Allergy (Verified 04/27/24 15:15) ibuprofen Allergy (Verified 04/27/24 15:15) naproxen Allergy (Verified 04/27/24 15:15) Penicillins Allergy (Verified 04/27/24 15:15) promethazine [From Phenergan] Allergy (Verified 04/27/24 15:15) Sulfa (Sulfonamide Antibiotics) Allergy (Verified 04/27/24 15:15) tramadol Allergy (Verified 04/27/24 15:15) Home Medications: Brexpiprazole [Rexulti] 0.25 mg PO DAILY 01/20/24 [History] Hydroxyzine HCl 25 mg [Atarax 25 mg] 25 mg PO Q6H PRN PRN 01/20/24 [History] Vortioxetine Hydrobromide [Trintellix] 5 mg PO DAILY 01/20/24 [History] Hx Tetanus, Diphtheria Vaccination/Date Given: Yes (Last tetanus 2018) Hx Influenza Vaccination/Date Given: No Hx Pneumococcal Vaccination/Date Given: No Immunizations Up to Date: Yes Travel Risk - International Travel Have you traveled outside of the country in past 3 weeks: No - Emerging Infectious Disease Are you exhibiting symptoms associated with any current EIDs: No - Review of Systems Constitutional: No Symptoms Ears, Nose, & Throat: No Symptoms Respiratory: No Symptoms Cardiac: No Symptoms Abdominal/Gastrointestinal: No Symptoms Musculoskeletal: Injury, Joint Pain Skin: No Symptoms Neurological: No Symptoms - Past Medical History Pertinent Past Medical History: Yes Neurological History: No Pertinent History ENT History: No Pertinent History Cardiac History: No Pertinent History Respiratory History: Asthma Endocrine Medical History: No Pertinent History Musculoskeletal History: No Pertinent History, Fractures GI Medical History: Gallbladder Disease History: No Pertinent History Psycho-Social History: Anxiety, Bipolar, Depression Female Reproductive Disorders: No Pertinent History Other Medical History: manic bipolar depressive, Schizophrenia, borderline personality, phobias. - Past Surgical History Past Surgical History: Yes Neuro Surgical History: No Pertinent History Cardiac: No Pertinent History Respiratory: No Pertinent History Gastrointestinal: Cholecystectomy Genitourinary: No Pertinent History Musculoskeletal: No Pertinent History Female Surgical History: Tubal Ligation Other Surgical History: Gallbladder, Tubal, right ankle fx total of 11 times in the past (never had sx - Female History Hx Last Menstrual Period: 1 week ago Hx Now: No - Social History Smoking Status: Current every day smoker How long have you smoked: 20 YRS Exposure to second hand smoke: No Drug Use: marijuana Patient Lives Alone: No - Social Determinants of Health Will the patient participate in the screening: Yes Do you worry about a steady place to live?: No Do you have any problems with any of the following?: No known problems In the past 12 months,have you had to go without utilities?: No Transportation Issues: No Has anyone in your support network made you feel unsafe?: No Have you or anyone in your house had to go without enough: No - Nursing Vital Signs Nursing Vital Signs: Initial Vital Signs Temperature 98.5 F 04/27/24 15:24 Pulse Rate 65 04/27/24 15:24 Respiratory Rate 20 04/27/24 15:24 Blood Pressure 135/59 04/27/24 15:24 O2 Sat by Pulse Oximetry 96 04/27/24 15:24 Pain Scale Pain Intensity 9 - Physical Exam General Appearance: no apparent distress Neck Exam: normal inspection, full range of motion Cardiovascular/Respiratory Exam: normal breath sounds, regular rate/rhythm Ankle Exam: right ankle: limited range of motion, pain, soft tissue tenderness, swelling, left ankle: non-tender, normal inspection, normal range of motion, no evidence of injury Foot Exam: right foot: bone tenderness, limited range of motion, pain, soft tissue tenderness, left foot: non-tender, normal inspection, normal range of motion, no evidence of injury Neuro/Tendon Exam: normal sensation, normal motor functions Mental Status Exam: alert, oriented x 3, cooperative Skin Exam: normal color SpO2 Interpretation: normal SpO2: 96 O2 Delivery: Room Air Ordered Tests: Active Orders 24 hr Category Date Time Status FOOT (MINIMUM 3 VIEWS) Stat Exams 04/27/24 15:20 Completed Medication Summary Discontinued Medications Generic Name Dose Route Start Last Admin Trade Name Lizbeth PRN Reason Stop Dose Admin Hydrocodone Bitart/Acetaminophen 2 tab 04/27/24 16:11 04/27/24 16:13 Hydrocodone/Apap 5/325 1 Tab Tablet PO 04/27/24 16:12 2 tab STAT ONE Administration Hydrocodone Bitart/Acetaminophen Confirm 04/27/24 16:13 Hydrocodone/Apap 5/325 1 Tab Tablet Administered 04/27/24 16:14 Dose 2 tab .ROUTE .STK-MED ONE - Progress Progress: improved, pain not gone completely Progress Note: 04/27/24 16:44 38 years old is evaluated in the ER after her daughter accidentally stepped on her right foot where she has right ankle surgery done recently. She is having increasing pain and is out of pain medications. I have given her Falk[place], feeling better on reevaluation but pain has not completely resolved. X-rays of foot are negative for fracture dislocation. She does not have any discharge and wound seems healthy. Junior RN have contacted pain management and they will prescribe her pain medication which she is advised to take. Recommended elevation, intermittent ice application and podiatry follow-up outpatient. Counseled pt/family regarding: diagnosis, need for follow-up, rad results Medical Desision Making - Independent Historian Additional History obtained from: Mother - Diagnostic Testing Diagnostic test were ordered, analyzed, and reviewed by me: Yes Radiological Interpretation: Reviewed by me - Risk of complications The pt has a mod risk of morbidity or mortality based on: Need for prescription drug management - Departure Departure Disposition: Home Clinical Impression: Right foot pain Condition: Stable Critical Care Time: No Referrals: ASAEL BEJARANO PA [Primary Care Provider] - Follow up with PCP 1 day JOSE EDUARDO MOYA DPM [ACTIVE STAFF] - Follow up/PCP as directed (Call for reevaluation appointment) Instructions: Contusion (DC) Additional Instructions: Follow-up with primary care and podiatry for reevaluation. Return to ER for intractable pain swelling, difficulty ambulation/movements etc.
[2024-04-27 17:39] VITALS: PULSE 64; RESP 18
== END 2024-04-27 17:39 | disposition home or self-care (01) ==
LOC: ED 14:47
DX: M79.671 Pain in right foot (principal); Z79.899 Other long term (current) drug therapy; Z72.0 Tobacco use
CPT/HCPCS: 73630; 99283; A9270-GY

== ENCOUNTER 2024-05-11 18:31 | Emergency (ER) | payer OTHER ==
[2024-05-11 20:05] VITALS: TEMP 96.8; O2SAT 98
[2024-05-11 20:54] VITALS: BP 113/86; PULSE 85; RESP 18
--- NOTE | 2024-05-11 21:27 | ERPHSYRPT ---
- History of Present Illness Time Seen by Provider: 05/11/24 21:24 Patient Subjective Stated Complaint: pt states that she was walking down the stairs with crutches and fell back. pt states that she hurt her rt hip Triage Nursing Assessment: pt ambulated into the er with knee scooter; pt is axo x4; c/o rt hip pain; pt states 10/10 pain to rt hip; no shortening or rotation present to RLE; c/o N/V; skin PDW; no respiratory distress present; hypertensive Physician History: 38-year-old female presents to our ED for evaluation of right hip pain. I went to see patient approximately 9 PM. Patient was not in her room. Patient was reportedly in the restroom. Went to see a other patients. As I returned to the nurses station they reported patient left as she got tired of waiting. A formal evaluation was not completed on this patient Allergies/Adverse Reactions: aspirin Allergy (Verified 05/11/24 19:55) cyclobenzaprine [From Flexeril] Allergy (Verified 05/11/24 19:55) erythromycin base Allergy (Verified 05/11/24 19:55) ibuprofen Allergy (Verified 05/11/24 19:55) naproxen Allergy (Verified 05/11/24 19:55) Penicillins Allergy (Verified 05/11/24 19:55) promethazine [From Phenergan] Allergy (Verified 05/11/24 19:55) Sulfa (Sulfonamide Antibiotics) Allergy (Verified 05/11/24 19:55) tramadol Allergy (Verified 05/11/24 19:55) Home Medications: Brexpiprazole [Rexulti] 0.25 mg PO DAILY 01/20/24 [History] Hydroxyzine HCl 25 mg [Atarax 25 mg] 25 mg PO Q6H PRN PRN 01/20/24 [History] Vortioxetine Hydrobromide [Trintellix] 5 mg PO DAILY 01/20/24 [History] Buprenorphine HCl [Belbuca] 75 mcg BC BID 05/11/24 [History] Gabapentin 100 mg PO QID 05/11/24 [History] Hydrocodone/Acetaminophen [Hydrocodone-Acetamin 7.5-325] 1 tab PO TID PRN 05/11/24 [History] Hx Tetanus, Diphtheria Vaccination/Date Given: Yes (Last tetanus 2018) Hx Influenza Vaccination/Date Given: No Hx Pneumococcal Vaccination/Date Given: No Travel Risk - International Travel Have you traveled outside of the country in past 3 weeks: No - Emerging Infectious Disease Are you exhibiting symptoms associated with any current EIDs: No - Past Medical History Pertinent Past Medical History: Yes Neurological History: No Pertinent History ENT History: No Pertinent History Cardiac History: No Pertinent History Respiratory History: Asthma Endocrine Medical History: No Pertinent History Musculoskeletal History: No Pertinent History, Fractures GI Medical History: Gallbladder Disease History: No Pertinent History Psycho-Social History: Anxiety, Bipolar, Depression Female Reproductive Disorders: No Pertinent History Other Medical History: manic bipolar depressive, Schizophrenia, borderline personality, phobias. - Past Surgical History Past Surgical History: Yes Neuro Surgical History: No Pertinent History Cardiac: No Pertinent History Respiratory: No Pertinent History Gastrointestinal: Cholecystectomy Genitourinary: No Pertinent History Musculoskeletal: Orthopedic Surgery Female Surgical History: Tubal Ligation Other Surgical History: Gallbladder, Tubal, right ankle fx total of 11 times in the past (never had sx - Female History Hx Last Menstrual Period: 1 week ago Hx Now: No - Social History Smoking Status: Current every day smoker How long have you smoked: 20 YRS Exposure to second hand smoke: Yes Drug Use: marijuana Patient Lives Alone: No - Social Determinants of Health Will the patient participate in the screening: Yes Do you worry about a steady place to live?: No Do you have any problems with any of the following?: No known problems In the past 12 months,have you had to go without utilities?: No Transportation Issues: No Has anyone in your support network made you feel unsafe?: No Have you or anyone in your house had to go without enough: No - Nursing Vital Signs Nursing Vital Signs: Initial Vital Signs Temperature 96.8 F 05/11/24 19:55 Pulse Rate 97 H 05/11/24 19:55 Respiratory Rate 20 05/11/24 19:55 Blood Pressure 142/94 05/11/24 19:55 O2 Sat by Pulse Oximetry 98 05/11/24 19:55 Pain Scale Pain Intensity 10 - Physical Exam SpO2: 98 - Departure Departure Disposition: Left without being seen Clinical Impression: Hip pain Condition: Stable Critical Care Time: No Referrals: ASAEL BEJARANO PA [Primary Care Provider] - Follow up/PCP as directed
== END 2024-05-11 21:30 | disposition left against medical advice (07) ==
LOC: ED 18:31
DX: M25.551 Pain in right hip (principal)
CPT/HCPCS: 99281; G0463

== ENCOUNTER 2025-04-10 10:40 | Emergency (ER) | payer OTHER ==
[2025-04-10 10:56] VITALS: TEMP 98.2
--- NOTE | 2025-04-10 11:14 | ERPHSYRPT ---
- History of Present Illness Time Seen by Provider: 04/10/25 10:50 Source: patient Exam Limitations: clinical condition Patient Subjective Stated Complaint: pt here for a fall today while trying to get into car, she thinks she slipped on wet grass. co pain to back of head, right elbow and right knee, and left ankle. no loc Triage Nursing Assessment: pt alert, arrived per wc, able to get from wc to bed, resp easy, skin w/d/p, has abrasion to right knee, moves all ext well , Severity: mild Associated Symptoms: denies symptoms Allergies/Adverse Reactions: aspirin Allergy (Verified 04/10/25 10:50) cyclobenzaprine [From Flexeril] Allergy (Verified 04/10/25 10:50) erythromycin base Allergy (Verified 04/10/25 10:50) ibuprofen Allergy (Verified 04/10/25 10:50) naproxen Allergy (Verified 04/10/25 10:50) Penicillins Allergy (Verified 04/10/25 10:50) promethazine [From Phenergan] Allergy (Verified 04/10/25 10:50) Sulfa (Sulfonamide Antibiotics) Allergy (Verified 04/10/25 10:50) tramadol Allergy (Verified 04/10/25 10:50) Home Medications: Brexpiprazole [Rexulti] 1 ea DAILY 04/10/25 [History] Cetirizine HCl 5 mg PO DAILY 04/10/25 [History] Hydroxyzine HCl 25 mg [Atarax 25 mg] 25 mg PO Q6H PRN PRN 04/10/25 [History] Pregabalin 50 mg [Lyrica 50MG] 50 mg PO TID 04/10/25 [History] Vortioxetine Hydrobromide [Trintellix] 1 ea DAILY 04/10/25 [History] Hx Tetanus, Diphtheria Vaccination/Date Given: Yes (2019) Hx Influenza Vaccination/Date Given: No Hx Pneumococcal Vaccination/Date Given: No Immunizations Up to Date: Yes Travel Risk - Emerging Infectious Disease Are you exhibiting symptoms associated with any current EIDs: No - Review of Systems Constitutional: No Symptoms Eyes: No Symptoms Ears, Nose, & Throat: No Symptoms Respiratory: No Symptoms Cardiac: No Symptoms Abdominal/Gastrointestinal: No Symptoms Genitourinary Symptoms: No Symptoms Musculoskeletal: No Symptoms, Fall Skin: No Symptoms Neurological: No Symptoms Psychological: No Symptoms Endocrine: No Symptoms Hematologic/Lymphatic: No Symptoms Immunological/Allergic: No Symptoms All Other Systems: Reviewed and Negative - Past Medical History Pertinent Past Medical History: Yes Neurological History: No Pertinent History ENT History: No Pertinent History Cardiac History: No Pertinent History Respiratory History: Asthma Endocrine Medical History: No Pertinent History Musculoskeletal History: Degenerative Disk Disease, Fractures History: No Pertinent History Psycho-Social History: Anxiety, Bipolar, Depression Female Reproductive Disorders: No Pertinent History Other Medical History: manic bipolar depressive, Schizophrenia, borderline personality, phobias.chronic back pain - Past Surgical History Past Surgical History: Yes Neuro Surgical History: No Pertinent History Cardiac: No Pertinent History Respiratory: No Pertinent History Gastrointestinal: Cholecystectomy Genitourinary: No Pertinent History Musculoskeletal: Orthopedic Surgery Female Surgical History: Tubal Ligation Other Surgical History: Gallbladder, Tubal, right ankle fx total of 11 times in the past (never had sx - Female History Hx Last Menstrual Period: month ago Hx Now: No - Social History Smoking Status: Current every day smoker Exposure to second hand smoke: Yes Drug Use: marijuana - Social Determinants of Health Will the patient participate in the screening: Yes Do you worry about a steady place to live?: No Do you have any problems with any of the following?: No known problems In the past 12 months,have you had to go without utilities?: No Transportation Issues: No Has anyone in your support network made you feel unsafe?: No Have you or anyone in your house had to go w/o enough food: No - Nursing Vital Signs Nursing Vital Signs: Initial Vital Signs Temperature 98.2 F 04/10/25 10:55 Pulse Rate 72 04/10/25 10:55 Respiratory Rate 18 04/10/25 10:55 Blood Pressure 104/81 04/10/25 10:55 O2 Sat by Pulse Oximetry 99 04/10/25 10:55 Pain Scale Pain Intensity 0 - Physical Exam General Appearance: no apparent distress, other (small poasterior scalp hematoma palpated ) Eye Exam: PERRL/EOMI Ears, Nose, Throat Exam: normal ENT inspection Respiratory Exam: normal breath sounds Cardiovascular Exam: regular rate/rhythm Gastrointestinal/Abdomen Exam: soft, normal bowel sounds Extremity Exam: normal inspection, normal range of motion, tenderness (patient has tenderness to the left ankle right knee and right elbow and has abrasions to the right knee, she has decreased ROM Due to pain and is neurovascullary intact in the above mentioned joints ) Neurologic Exam: alert, oriented x 3 SpO2: 99 Ordered Tests: Active Orders 24 hr Category Date Time Status ANKLE (3 VIEWS) Stat Exams 04/10/25 11:10 Completed ELBOW (MINIMUM 3 VIEWS) Stat Exams 04/10/25 11:10 Completed HEAD WITHOUT CONTRAST [CT] Stat Exams 04/10/25 11:05 Completed KNEE (MIN 4 VIEW) Stat Exams 04/10/25 11:12 Completed Medication Summary Discontinued Medications Generic Name Dose Route Start Last Admin Trade Name Lizbeth PRN Reason Stop Dose Admin Hydrocodone Bitart/Acetaminophen 1 tab 04/10/25 11:06 04/10/25 11:46 Hydrocodone/Apap 5/325 1 Tab Tablet PO 04/10/25 11:07 1 tab STAT ONE Administration Hydrocodone Bitart/Acetaminophen Confirm 04/10/25 11:45 Hydrocodone/Apap 5/325 1 Tab Tablet Administered 04/10/25 11:46 Dose 1 tab .ROUTE .ST-MED ONE - Progress Progress Note: patient was seen and evaluated for her complaints - xrays of the joints and ct head was obtained she was updated with the results and informed of the need for follow up - she will be discharged home with splints and head injury precautions. she is to use ice to the affected areas and follow up with orthopedic surgery 04/10/25 13:13 Medical Desision Making - Discussion of managment Agreed on:: need for follow-up - Departure Departure Disposition: Home Clinical Impression: Closed head injury, Left ankle sprain, Right knee sprain, Sprain of elbow, right Condition: Stable Critical Care Time: No Referrals: ZAIRA DUFFY MD [Primary Care Provider, [facility]] - Follow up/PCP as directed
[2025-04-10] MEDS ORDERED: NORCO 5/325 MG ONE (11:45)
[2025-04-10] MEDS: NORCO 5/325 MG PO ONE (11:46)
--- NOTE | 2025-04-10 12:03 | XRAY ---
Indication: Pain. Comparison: None 3 view right knee demonstrates normal bones, articulation, and soft tissues with incidental tiny fabella.
--- NOTE | 2025-04-10 12:03 | XRAY ---
Indication: Pain. Comparison: None 3 view right elbow demonstrates normal bones, articulation, and soft tissues.
--- NOTE | 2025-04-10 12:03 | XRAY ---
Indication: Pain following injury. Comparison: None 3 view left ankle demonstrates normal bones, articulation, and soft tissues.
--- NOTE | 2025-04-10 12:31 | XRAY ---
Indication: Trauma and fall. Multiple contiguous axial images obtained through the head without contrast. Comparison: None Normal appearing brain parenchyma, ventricles, and bony calvarium. Incidental left periorbital jewelry. Visualized paranasal sinuses and mastoid air cells are clear. Impression: Normal CT head without contrast exam.
[2025-04-10 13:13] VITALS: O2SAT 99
[2025-04-10 13:39] VITALS: BP 105/65; PULSE 78; RESP 18
== END 2025-04-10 13:53 | disposition home or self-care (01) ==
LOC: ED 10:40
DX: S09.90XA Unspecified injury of head, initial encounter (principal); S93.402A Sprain of unspecified ligament of left ankle, initial encounter; S83.91XA Sprain of unspecified site of right knee, initial encounter; S53.401A Unspecified sprain of right elbow, initial encounter; W01.0XXA Fall on same level from slipping, tripping and stumbling without subsequent striking against object, initial encounter; Z79.899 Other long term (current) drug therapy; Z72.0 Tobacco use